=== PATIENT | female | born 1970 | race African-American/Black ===

== ENCOUNTER 2016-10-08 19:53 | Emergency (ER) | payer OTHER ==
[2016-10-08 20:08] VITALS: BP 123/76
[2016-10-08] MEDS ORDERED: Ondansetron ODT TAB* 4 MG PO ONE (20:44)
--- NOTE | 2016-10-08 20:48 | UC ---
Back Pain HPI - HPI Summary HPI Summary: 46 year old patient complaining of acute on chronic back pain. States she slipped and fell today on her stairs, tail bone area of the back hit the stair, sacral spine has increased. Patient saw her PCP earlier today for back pain, was prescribed Tramadol and flexeril. Pt has a recurring monthly script of oxycodone. Patient states she becomes nauseated when taking the tramadol and the flexeril makes her feel too sedated. Patient would like more oxycodone. - History of Current Complaint Chief Complaint: UCBackPain Stated Complaint: BACK INJURY Time Seen by Provider: 10/08/16 20:06 Hx Obtained From: Patient Hx Last Menstrual Period: DOESN'T GET ?: No Onset/Duration: Sudden Onset - Increased chronic back pain after fall Severity Initially: Severe Severity Currently: Severe - Patient exhibits no signs of acute distress Pain Intensity: 10 Pain Scale Used: 0-10 Numeric Back Pain: Radiates To - Right posterior leg into the right popliteal space Character: Unable to Describe Aggravating: Movement, Bending, Walking Alleviating: Nothing - Patient refuses alternative treatment interventions Associated Signs And Symptoms: Positive: Pain with Weight Bearing. Negative: Weakness, Numbness, Tingling, Bladder Incontinence, Bowel Incontinence Related History: Previous Back Injury - Chronic back pain - Risk Factors AAA Risk Factors: Negative TAD Risk Factors: Negative Cauda Equina Risk Factors: Negative Epidural Abscess Risk Factors: Negative - Allergies/Home Medications Allergies/Adverse Reactions: Allergies Allergy/AdvReac Type Severity Reaction Status Date / Time Amoxicillin Allergy Intermediate Itching Verified 08/08/16 08:20 PMH/Surg Hx/FS Hx/Imm Hx Previously Healthy: Yes - Chronic low back pain Endocrine History Of: Denies: Diabetes, Thyroid Disease, Hyperthyroidism, Hypothyroidism, Dyslipidemia Cardiovascular History Of: Denies: Cardiac Disorders, Hypertension, Pacemaker/ICD, Myocardial Infarction , Congestive Heart Failure, Atrial Fibrillation, Deep Vein Thrombosis, Bleeding Disorders Respiratory History Of: Denies: COPD, Asthma, Bronchitis, Pneumonia, Pulmonary Embolism GI/ History Of: Reports: Gall Bladder Disease, Kidney Stones Denies: Gastroesophageal Reflux, Ulcer, Gastrointestinal Bleed, Diverticulitis, Renal Disease, Urosepsis Neurological History Of: Denies: TIA, CVA, Dementia, Seizures, Migraine Psychological History Of: Denies: Anxiety, Depression, Bipolar Disorder, Schizophrenia, Post Traumatic Stress Disorder Cancer History Of: Denies: Lung Cancer, Colorectal Cancer, Breast Cancer, Prostate Cancer, Cervical Cancer Other History Of: Negative For: HIV, Hepatitis B, Hepatitis C, Anticoagulant Therapy - Surgical History Surgical History: Yes Surgery Procedure, Year, and Place: GASTRIC BYPASS-([facility]) : 07/03; [facility]; 2 C SECTIONS, Rt HAND CARPAL TUNNEL Xs2; Lt WRIST GANGLION CYST, ANASTOMOTIC STRICTURE DILATED 08/2012. Pt. states that a needle was left in her after her gastric bypass - Family History Known Family History: Positive: Unknown Negative: Cardiac Disease, Hypertension, Diabetes - Social History Lives: With Family Alcohol Use: Rare Alcohol Amount: 1/2 glass of wine monthly Substance Use Type: None Substance Use Comment - Amount & Last Used: oxycodone Smoking Status (MU): Current Every Day Smoker Type: Cigarettes Amount Used/How Often: 7-8 cigarettes/day Length of Time of Smoking/Using Tobacco: 20+ YEARS Have You Smoked in the Last Year: Yes Household Exposure Type: Cigarettes - Immunization History Most Recent Influenza Vaccination: NOT THIS YEAR Most Recent Tetanus Shot: 2008 Most Recent Pneumonia Vaccination: 05/2013 Vaccination Up to Date: Yes Review of Systems Constitutional: Negative Skin: Negative Eyes: Negative ENT: Negative Respiratory: Negative Cardiovascular: Negative Gastrointestinal: Negative Genitourinary: Negative Motor: Decreased ROM - decreased spinal ROM, Weakness - low back Neurovascular: Negative Musculoskeletal: Decreased ROM, Other: - Chronic low back pain with sciatica Neurological: Negative Psychological: Negative All Other Systems Reviewed And Are Negative: Yes Physical Exam Triage Information Reviewed: Yes Appearance: Well-Appearing, No Pain Distress, Well-Nourished Vital Signs: Initial Vital Signs Temp 97.7 F 10/08/16 20:02 Pulse 83 10/08/16 20:02 Resp 16 10/08/16 20:02 BP 123/76 10/08/16 20:02 Pulse Ox 100 10/08/16 20:02 Vital Signs Reviewed: Yes Eye Exam: Normal Eyes: Positive: Conjunctiva Clear ENT Exam: Normal ENT: Positive: Normal ENT inspection, Hearing grossly normal, Pharynx normal, TMs normal Dental Exam: Normal Neck exam: Normal Neck: Positive: Supple, Nontender, No Lymphadenopathy Respiratory Exam: Normal Respiratory: Positive: Chest non-tender, Lungs clear, Normal breath sounds, No respiratory distress, No accessory muscle use Cardiovascular Exam: Normal Cardiovascular: Positive: RRR, No Murmur, Pulses Normal Abdominal Exam: Normal Abdomen Description: Positive: Nontender, No Organomegaly, Soft Bowel Sounds: Positive: Present Musculoskeletal: Positive: Strength Limited @ - Spine, ROM Limited @ - spine Neurological Exam: Other - DTRs 2+ BLE Neurological: Positive: Alert, Muscle Tone Normal Psychological Exam: Normal Psychological: Positive: Normal Response To Family Skin Exam: Normal - Additional Comments Patient refused treatment modalities such as: Toradol IM injection Taking flexeril before bed to minimize sedation Taking zofran ODT before tramadol to reduce nausea Steroid medications to reduce inflammation Patient stated the only treatment course she was interested for pain management was increasing her existing pain medication. Back Pain Course/Dx - Course Course Of Treatment: Discussed non-opiate pain managment options with patients extensively, including NSAIDS, muscle relaxers, warm packs, ice packs, gentle movements/stretching, and nausea treatment to facilitate taking tramadol. Pt is unwilling to try any non-narcotic options. I explained that no additional narcotics would be prescribed tonight, as she is already on very high doses and further treatment will need to come from her primary care provider. - Differential Dx/Diagnosis Provider Diagnoses: Acute on chronic back pain Discharge - Discharge Plan Condition: Stable Disposition: HOME Prescriptions: Ondansetron ODT TAB* [Zofran Odt TAB*] 4 mg PO Q8H PRN #10 tab.odt PRN Reason: Nausea Patient Education Materials: Chronic Back Pain (ED), Lower Back Exercises (ED) Referrals: Renetta Katz MD [Primary Care Provider] - If Needed Additional Instructions: Begin attending physical therapy as prescribed by your primary care provider. Attend accupuncture as directed by primary care provider. As discussed, there are other treatment paths that are available to treat acute on chronic back pain.
== END 2016-10-08 20:51 | disposition home or self-care (01) ==
LOC: UCEAST 19:53
DX: M54.9 Dorsalgia, unspecified (principal); M54.40 Lumbago with sciatica, unspecified side; Z88.0 Allergy status to penicillin; F17.210 Nicotine dependence, cigarettes, uncomplicated
CPT/HCPCS: 99212; A9270-GY; G0463

== ENCOUNTER 2016-12-08 13:31 | Emergency (ER) | payer OTHER ==
[2016-12-08 15:07] VITALS: BP 119/73
--- NOTE | 2016-12-08 16:53 | UC ---
El Zambrano Erika, scribed for Bia Reis MD on 12/08/16 at 1520 . Back Pain HPI - HPI Summary HPI Summary: Patient is a 46-year-old female presenting to [facility] with a CC of back pain, worse today. Patient has a Hx of chronic back pain, and has oxycodone prescribed by Dr. Collier. Patient was given a 10 day supply of oxycodone 30mg on 11/29/2016, and ran out so came here. Pt admits to taking more than prescribed. Patient has her first appointment at the pain clinic on 12/11/2016. Patient reports that she believed she exacerbated the pain while shoveling the snow. Patient was prescribed a 30 day supply of fentanyl patches on 11/19/2016, but she states she has not been using them because they are not helping and make her itch. Pt also received #90 oxycodone 20mg on 11/19/16. Patient also notes nasal discharge. Has a slight sore throat. She reports she had her flu shot this season. Hx sciatica, arthritis. Patient denies Hx UTI or kidney infections. - History of Current Complaint Chief Complaint: UCBackPain Stated Complaint: BACK PAIN Time Seen by Provider: 12/08/16 15:03 Hx Obtained From: Patient, Medical Records Hx Last Menstrual Period: DOESN'T GET ?: No Onset/Duration: Gradual Onset, Lasting Hours, Worse Since - today Timing: Constant Severity Initially: Moderate Severity Currently: Severe Pain Intensity: 8 Pain Scale Used: 0-10 Numeric Back Pain: Is Discrete @ - lower back Character: Aching, Spasmodic Aggravating: Movement Alleviating: Nothing Associated Signs And Symptoms: Negative: Fever, Numbness, Tingling, Bladder Incontinence, Bowel Incontinence - Risk Factors AAA Risk Factors: Smoking TAD Risk Factors: Smoking Cauda Equina Risk Factors: Negative Epidural Abscess Risk Factors: Fever - no invasive procedures, no skin abscesses - Allergies/Home Medications Allergies/Adverse Reactions: Allergies Allergy/AdvReac Type Severity Reaction Status Date / Time Amoxicillin Allergy Intermediate Itching Verified 12/08/16 14:58 PMH/Surg Hx/FS Hx/Imm Hx - Additional Past Medical History Additional PMH: Chronic back pain GI/ History Of: Reports: Gall Bladder Disease, Kidney Stones Cancer History Of: Denies: Lung Cancer, Colorectal Cancer, Breast Cancer, Prostate Cancer, Cervical Cancer Other History Of: Negative For: HIV, Hepatitis B, Hepatitis C, Anticoagulant Therapy - Surgical History Surgical History: Yes Surgery Procedure, Year, and Place: GASTRIC BYPASS-([facility]) : 07/03; [facility]; 2 C SECTIONS, Rt HAND CARPAL TUNNEL Xs2; Lt WRIST GANGLION CYST, ANASTOMOTIC STRICTURE DILATED 08/2012. Pt. states that a needle was left in her after her gastric bypass - Family History Known Family History: Negative: Cardiac Disease, Hypertension, Diabetes - Social History Lives: With Family Alcohol Use: Rare Substance Use Type: Prescribed Substance Use Comment - Amount & Last Used: oxycodone Smoking Status (MU): Current Every Day Smoker Type: Cigarettes Amount Used/How Often: 7-8 cigarettes/day Length of Time of Smoking/Using Tobacco: 20+ YEARS Have You Smoked in the Last Year: Yes Household Exposure Type: Cigarettes - Immunization History Most Recent Influenza Vaccination: NOT THIS YEAR Most Recent Tetanus Shot: 2008 Most Recent Pneumonia Vaccination: 05/2013 Vaccination Up to Date: Yes Review of Systems Constitutional: Fever Skin: Negative Eyes: Negative ENT: Nasal Discharge Respiratory: Negative Cardiovascular: Negative Gastrointestinal: Negative Genitourinary: Negative Motor: Negative Neurovascular: Negative Musculoskeletal: Arthralgia - back, Myalgia - back Neurological: Negative Psychological: Negative All Other Systems Reviewed And Are Negative: Yes Physical Exam Triage Information Reviewed: Yes Appearance: Well-Appearing, Pain Distress, Obese Vital Signs: Initial Vital Signs Temp 100.4 F 12/08/16 15:00 Pulse 73 12/08/16 15:00 Resp 16 12/08/16 15:00 BP 119/73 12/08/16 15:00 Pulse Ox 100 12/08/16 15:00 Vital Signs Reviewed: Yes Eyes: Positive: Conjunctiva Clear, Other: - PERRL, EOMI ENT: Positive: Pharyngeal erythema, Other: - dry mucus membranes Neck: Positive: Supple, Nontender, No Lymphadenopathy Respiratory: Positive: Lungs clear, Normal breath sounds, No respiratory distress Cardiovascular: Positive: RRR, No Murmur, Pulses Normal, Brisk Capillary Refill Musculoskeletal: Positive: Strength Intact, ROM Intact, Other: - Back no lumbar spinal tenderness, no palpable spasm. Tender sciatic notch Neurological: Positive: Alert, Muscle Tone Normal, Other: - A & O x 3, motor 5/5 , sensation intact, Gait normal, patella reflexes 2+, pt able to walk on heels and toes. Psychological Exam: Normal Skin Exam: Normal Skin: Negative: significant lesion(s) - no abscesses or tracks or open lesions Re-Evaluation - Re-Evaluation First Eval Re-Evaluation Time: 16:10 Comment: Patient declined Toradol shot. She was advised about her test results Back Pain Course/Dx - Course Course Of Treatment: I-STOP reviewed: Patient received 60 oxycodone on 2016. She receives them regularly in 150-180 quantities. Prior to discharge I spoke with pharmacist Radha at [facility] and advised her of pt's istop results. UA negative. Influenza A & B and rapid strep negative. No source for fever identified. - Differential Dx/Diagnosis Differential Diagnosis/HQI/PQRI: Arthritis, Epidural Abscess, Herniated Disc, Strain, Sprain Provider Diagnoses: 1. Acute low back pain superimposed on chronic low back pain and sciatica Discharge - Discharge Plan Condition: Stable Disposition: HOME Prescriptions: oxyCODONE/Acetamin 5/325 MG* [Percocet 5/325 TAB*] 1 tab PO Q8H PRN #6 tab MDD 3 PRN Reason: Pain Patient Education Materials: Fever in Adults (ED), Acute Low Back Pain (ED) Referrals: Scot Collier MD [Primary Care Provider] - 2 Days Additional Instructions: Keep your appointment with Dr. Yadav. Please be advised of the [facility] Chronic Pain Guideline, which you have been given a copy of and Dr. Reis discussed with you. Your urine, strep test and flu test were all negative. RETURN TO URGENT CARE FOR ANY NEW OR WORSENING SYMPTOMS. The documentation as recorded by the El calzada Erika accurately reflects the service I personally performed and the decisions made by me, Bia Reis MD.
== END 2016-12-08 16:48 | disposition home or self-care (01) ==
LOC: UCEAST 13:31
DX: M54.40 Lumbago with sciatica, unspecified side (principal); Z88.0 Allergy status to penicillin; F17.210 Nicotine dependence, cigarettes, uncomplicated; G89.29 Other chronic pain; X50.0XXA Overexertion from strenuous movement or load, initial encounter; Y93.H1 Activity, digging, shoveling and raking; Y92.9 Unspecified place or not applicable
CPT/HCPCS: 81003; 87502; 87651; 99212; G0463

== ENCOUNTER 2016-12-09 18:41 | Emergency (ER) | payer OTHER ==
[2016-12-09 19:00] VITALS: BP 147/98
--- NOTE | 2016-12-09 20:03 | ED ---
Medical Screening - HPI Summary HPI Summary: Patient presents stating that a prescription from Dr. Yadav, with the pain clinic, was sent to [facility] [address] and that the pharmacy refuses to fill the prescription. She said the prescription is now at [facility] and she "needs me to call [facility] and tell them to release the prescription". She has chronic abdominal and back pain, and needs this medication. - History of Current Complaint Chief Complaint: EDPrescriptionNeeded Stated Complaint: MEDICATION REQUEST Onset/Duration: Still Present Severity: severe Associated Signs and Symptoms: Negative PMH/Surg Hx/FS Hx/Imm Hx Endocrine/Hematology History: Denies: Hx Anticoagulant Therapy, Hx Blood Disorders, Hx Diabetes, Hx Systemic Lupus Erythematosus, Hx Sickle Cell Disease, Hx Thyroid Disease Cardiovascular History: Denies: Hx Congestive Heart Failure, Hx Deep Vein Thrombosis, Hx Hypertension , Hx Myocardial Infarction, Hx Pacemaker/ICD Respiratory History: Reports: Hx Seasonal Allergies, Hx Sleep Apnea - CPAP PRN, Other Respiratory Problems/Disorders - TOBACCO USE Denies: Hx Asthma, Hx Chronic Bronchitis, Hx Chronic Obstructive Pulmonary Disease (COPD), Hx Lung Cancer, Hx Pneumonia, Hx Pulmonary Embolism GI History: Reports: Hx Gall Bladder Disease, Hx Gastroesophageal Reflux Disease , Other GI Disorders - GASTRIC BYPASS Denies: Hx Crohn's Disease, Hx Diverticulosis, Hx Gastrointestinal Bleed, Hx Irritable Bowel, Hx Ulcer, Hx Urosepsis History: Reports: Hx Kidney Stones Denies: Hx Kidney Infection, Hx Renal Disease Musculoskeletal History: Reports: Hx Arthritis - in her back, Hx Back Problems, Other Musculoskeletal History - arthritis, sciatic nerve Denies: Hx Bursitis, Hx Congenital Bone Abnormalities, Hx Fibromyalgia, Hx Gout, Hx Orthopedic Injury, Hx Osteoporosis, Hx Scoliosis, Hx Tendonitis Sensory History: Reports: Hx Contacts or Glasses, Hx Vision Problem Denies: Hx Cataracts, Hx Eye Injury, Hx Eye Prosthesis, Hx Glaucoma, Hx Macular Degeneration, Hx Deafness, Hx Hearing Aid, Hx Hearing Problem, Other Sensory Impairments Opthamlomology History: Reports: Hx Contacts or Glasses, Hx Vision Problem Denies: Hx Cataracts, Hx Eye Injury, Hx Eye Prosthesis, Hx Glaucoma, Hx Macular Degeneration, Other Sensory Impairments Neurological History: Denies: Hx Dementia, Hx Headaches, Hx Migraine, Hx Seizures, Hx Transient Ischemic Attacks (TIA) Psychiatric History: Reports: Hx Eating Disorder - ANOREXIA NERVOSA Denies: Hx Anxiety, Hx Depression, Hx Panic Disorder, Hx Schizophrenia, Hx Bipolar Disorder, Hx Substance Abuse - Surgical History Surgery Procedure, Year, and Place: GASTRIC BYPASS-([facility]) : 07/03; [facility]; 2 C SECTIONS, Rt HAND CARPAL TUNNEL Xs2; Lt WRIST GANGLION CYST, ANASTOMOTIC STRICTURE DILATED 08/2012. Pt. states that a needle was left in her after her gastric bypass Hx Anesthesia Reactions: No - Immunization History Date of Tetanus Vaccine: PT STATES UNSURE Date of Influenza Vaccine: None in 2012 Infectious Disease History: No Infectious Disease History: Denies: Hx Clostridium Difficile, Hx Hepatitis, Hx Human Immunodeficiency Virus (HIV), Hx of Known/Suspected MRSA, Hx Shingles, Hx Tuberculosis, Hx Known/ Suspected VRE, Hx Known/Suspected VRSA, History Other Infectious Disease, Traveled Outside the [place] in Last 30 Days - Family History Known Family History: Positive: None Negative: Cardiac Disease, Hypertension, Diabetes - Social History Occupation: Unemployed Lives: With Family Alcohol Use: Rare Alcohol Amount: 1/2 glass of wine monthly Substance Use Type: Reports: Prescribed Substance Use Comment - Amount & Last Used: oxycodone Smoking Status (MU): Current Every Day Smoker Type: Cigarettes Amount Used/How Often: 7-8 cigarettes/day Length of Time of Smoking/Using Tobacco: 20+ YEARS Have You Smoked in the Last Year: Yes Cessation Counseling: Patient Advised to Stop Review of Systems Negative: Fever, Chills Positive: Abdominal Pain - chronic and unchanged All Other Systems Reviewed And Are Negative: Yes Physical Exam - Summary Physical Exam Summary: Patient is wandering the emergency department in no acute distress. Triage Information Reviewed: Yes Vital Signs On Initial Exam: Initial Vitals Temp Pulse Resp BP Pulse Ox 98.2 F 93 16 147/98 100 12/09/16 18:57 12/09/16 18:57 12/09/16 18:57 12/09/16 18:57 12/09/16 18:57 Vital Signs Reviewed: Yes Appearance: Positive: Well-Appearing, No Pain Distress, Well-Nourished Skin: Positive: Warm, Skin Color Reflects Adequate Perfusion, Dry Head/Face: Positive: Normal Head/Face Inspection Eyes: Positive: EOMI, DANNY, Conjunctiva Clear ENT: Positive: Hearing grossly normal Respiratory/Lung Sounds: Positive: Breath Sounds Present Cardiovascular: Positive: RRR Musculoskeletal: Negative: Edema Left, Edema Right Neurological: Positive: Sensory/Motor Intact, Alert, Oriented to Person Place, Time, NV Bundle Intact Distally, Normal Gait Psychiatric: Positive: Affect/Mood Appropriate AVPU Assessment: Alert Diagnostics - Vital Signs Vital Signs Temp Pulse Resp BP Pulse Ox 12/09/16 18:57 98.2 F 93 16 147/98 100 - Laboratory Lab Statement: Any lab studies that have been ordered have been reviewed, and results considered in the medical decision making process. Course/Dx - Course Course Of Treatment: I let the patient know initially that I would not prescribe narcotics to her when she has medication from multiple providers and that the issue she has with her prescription should be takne up with the writing provider. When I spoke with Dr. Yadav, he said he had his first visit with the patient today and obviously did not get the full story regarding her narcotic use, since he now knows she currently has medication for pain from multiple providers, and from multiple pharmacies. He is unwilling to release or recommend any medication for the patient, and will "sort this out tomorrow". I let the patient know about my conversation with Dr. Yadav, and she immediately left the ED without signing her discharge instructions. - Diagnoses Provider Diagnoses: Prescription drug abuse Discharge - Discharge Plan Condition: Stable Disposition: HOME
== END 2016-12-09 19:58 | disposition home or self-care (01) ==
LOC: ED 18:41
DX: Z76.0 Encounter for issue of repeat prescription (principal); F19.10 Other psychoactive substance abuse, uncomplicated; F17.210 Nicotine dependence, cigarettes, uncomplicated
CPT/HCPCS: 99282

== ENCOUNTER 2017-02-03 05:25 | Emergency (ER) | payer OTHER ==
[2017-02-03] MEDS ORDERED: Metoclopramide IV* 5 MG/ML 2 ML VIAL IV ONE ×2 (05:58→11:14)
[2017-02-03] MEDS ORDERED: NS 0.9% 1000 ML* 1,000 ML IV ONE (05:58)
[2017-02-03] MEDS ORDERED: Morphine INJ* 4 MG/ML 1 ML SYRINGE IV ONE ×2 (06:28→07:34)
[2017-02-03 06:33] LABS: ALT 11 U/L (7-52); AST 17 U/L (13-39); Albumin 3.5 g/dL (3.2-5.2); Alkaline Phosphatase 62 U/L (34-104); Anion Gap 5 mmol/L (2-11); BUN/Creatinine Ratio 13.2 (8-20); Blood Urea Nitrogen 9 mg/dL (6-24); C Reactive Protein < 1.00 mg/L (< 5.00); CO2 Carbon Dioxide 24 mmol/L (22-32); Calcium 8.9 mg/dL (8.6-10.3); Chloride 107 mmol/L (101-111); EGFR African American 120.9 (>60); Globulin 3.4 g/dL (2-4); Glucose 98 mg/dL (70-100); Lipase 23 U/L (11.0-82.0); Potassium 3.7 mmol/L (3.5-5.0); Sodium 136 mmol/L (133-145); Total Protein 6.9 g/dL (6.4-8.9)
[2017-02-03 06:34] LABS: Hematocrit 32 % (35-47); Hemoglobin 9.7 g/dl (12.0-16.0); Mean Corpuscular HGB Conc 30 g/dl (31-36); Mean Corpuscular Hemoglobin 19 pg (27-31); Mean Corpuscular Volume 64 fL (80-97); Mean Platelet Volume 9 um3 (7.4-10.4); Red Cell Distribution Width 21 % (10.5-15); White Blood Count 10.2 10^3/ul (3.5-10.8)
[2017-02-03 06:35] LABS: Add Diff/Slide Review? Manual Diff Added; Comments Flag Yes
[2017-02-03] MEDS ORDERED: Ondansetron INJ* 2 MG/ML VIAL IV ONE ×2 (06:40→07:35)
--- NOTE | 2017-02-03 06:49 | ED ---
Isaias Zambrano Billy, scribed for Ian Bowie MD on 02/03/17 at 0622 . Abdominal Pain/Female - HPI Summary HPI Summary: Patient is a 46 year-old female coming to [facility] for evaluation of nausea and vomiting for the last 3 days. She also states that she had an episode of diarrhea yesterday. Patient also complains of headache and subjective fever. She has had similar episodes of nausea and vomiting in the past. She had gastric bypass in 2012. - History of Current Complaint Chief Complaint: EDNauseaVomitDiarrh Stated Complaint: VOMITING/CHEST PAIN Time Seen by Provider: 02/03/17 06:13 Hx Obtained From: Patient Hx Last Menstrual Period: DOESN'T GET Onset/Duration: Gradual Onset, Lasting Days Timing: Constant Severity Initially: Moderate Severity Currently: Moderate Pain Intensity: 8 Pain Scale Used: 0-10 Numeric Aggravating Factor(s): Nothing Alleviating Factor(s): Nothing Associated Signs and Symptoms: Positive: Fever, Nausea, Vomiting, Diarrhea Allergies/Adverse Reactions: Allergies Allergy/AdvReac Type Severity Reaction Status Date / Time Amoxicillin Allergy Intermediate Itching Verified 12/09/16 18:57 PMH/Surg Hx/FS Hx/Imm Hx Endocrine/Hematology History: Denies: Hx Anticoagulant Therapy, Hx Blood Disorders, Hx Diabetes, Hx Systemic Lupus Erythematosus, Hx Sickle Cell Disease, Hx Thyroid Disease Cardiovascular History: Denies: Hx Congestive Heart Failure, Hx Deep Vein Thrombosis, Hx Hypertension , Hx Myocardial Infarction, Hx Pacemaker/ICD Respiratory History: Reports: Hx Seasonal Allergies, Hx Sleep Apnea - CPAP PRN, Other Respiratory Problems/Disorders - TOBACCO USE Denies: Hx Asthma, Hx Chronic Bronchitis, Hx Chronic Obstructive Pulmonary Disease (COPD), Hx Lung Cancer, Hx Pneumonia, Hx Pulmonary Embolism GI History: Reports: Hx Gall Bladder Disease, Hx Gastroesophageal Reflux Disease , Other GI Disorders - GASTRIC BYPASS Denies: Hx Crohn's Disease, Hx Diverticulosis, Hx Gastrointestinal Bleed, Hx Irritable Bowel, Hx Ulcer, Hx Urosepsis History: Reports: Hx Kidney Stones Denies: Hx Kidney Infection, Hx Renal Disease Musculoskeletal History: Reports: Hx Arthritis - in her back, Hx Back Problems, Other Musculoskeletal History - arthritis, sciatic nerve Denies: Hx Bursitis, Hx Congenital Bone Abnormalities, Hx Fibromyalgia, Hx Gout, Hx Orthopedic Injury, Hx Osteoporosis, Hx Scoliosis, Hx Tendonitis Sensory History: Reports: Hx Contacts or Glasses, Hx Vision Problem Denies: Hx Cataracts, Hx Eye Injury, Hx Eye Prosthesis, Hx Glaucoma, Hx Macular Degeneration, Hx Deafness, Hx Hearing Aid, Hx Hearing Problem, Other Sensory Impairments Opthamlomology History: Reports: Hx Contacts or Glasses, Hx Vision Problem Denies: Hx Cataracts, Hx Eye Injury, Hx Eye Prosthesis, Hx Glaucoma, Hx Macular Degeneration, Other Sensory Impairments Neurological History: Denies: Hx Dementia, Hx Headaches, Hx Migraine, Hx Seizures, Hx Transient Ischemic Attacks (TIA) Psychiatric History: Reports: Hx Eating Disorder - ANOREXIA NERVOSA Denies: Hx Anxiety, Hx Depression, Hx Panic Disorder, Hx Schizophrenia, Hx Bipolar Disorder, Hx Substance Abuse - Surgical History Surgery Procedure, Year, and Place: GASTRIC BYPASS-([facility]) : 07/03; [facility]; 2 C SECTIONS, Rt HAND CARPAL TUNNEL Xs2; Lt WRIST GANGLION CYST, ANASTOMOTIC STRICTURE DILATED 08/2012. Pt. states that a needle was left in her after her gastric bypass Hx Anesthesia Reactions: No - Immunization History Date of Tetanus Vaccine: PT STATES UNSURE Date of Influenza Vaccine: None in 2012 Infectious Disease History: No Infectious Disease History: Denies: Hx Clostridium Difficile, Hx Hepatitis, Hx Human Immunodeficiency Virus (HIV), Hx of Known/Suspected MRSA, Hx Shingles, Hx Tuberculosis, Hx Known/ Suspected VRE, Hx Known/Suspected VRSA, History Other Infectious Disease, Traveled Outside the [place] in Last 30 Days - Family History Known Family History: Negative: Cardiac Disease, Hypertension, Diabetes - Social History Alcohol Use: Rare Alcohol Amount: 1/2 glass of wine monthly Substance Use Type: Reports: Prescribed Substance Use Comment - Amount & Last Used: oxycodone Smoking Status (MU): Current Every Day Smoker Type: Cigarettes Amount Used/How Often: 7-8 cigarettes/day Length of Time of Smoking/Using Tobacco: 20+ YEARS Have You Smoked in the Last Year: Yes Review of Systems Positive: Fever Positive: Vomiting, Diarrhea, Nausea Positive: Headache All Other Systems Reviewed And Are Negative: Yes Physical Exam Triage Information Reviewed: Yes Vital Signs On Initial Exam: Initial Vitals Temp Pulse Resp BP Pulse Ox 99.4 F 82 20 158/111 100 02/03/17 05:26 02/03/17 05:26 02/03/17 05:26 02/03/17 05:26 02/03/17 05:26 Vital Signs Reviewed: Yes Appearance: Positive: Pain Distress - mild discomfort, Obese Skin: Positive: Warm Head/Face: Positive: Normal Head/Face Inspection Eyes: Positive: DANNY ENT: Positive: Hearing grossly normal Neck: Positive: Supple Respiratory/Lung Sounds: Positive: Breath Sounds Present Cardiovascular: Positive: RRR Abdomen Description: Positive: Soft, Other: - mild diffuse tenderness. Negative : Distended, Guarding Bowel Sounds: Positive: Present Musculoskeletal: Positive: Strength/ROM Intact Neurological: Positive: Alert, Oriented to Person Place, Time - Dilshad Coma Scale Coma Scale Total: 15 Diagnostics - Vital Signs Vital Signs Temp Pulse Resp BP Pulse Ox 02/03/17 06:00 79 99 02/03/17 05:42 76 100 02/03/17 05:40 154/95 02/03/17 05:33 99.3 F 73 20 154/93 100 02/03/17 05:26 99.4 F 82 20 158/111 100 - Laboratory Lab Results: Lab Results 02/03/17 02/03/17 02/03/17 Range/Units 05:55 05:55 05:55 WBC 10.2 (3.5-10.8) 10^3/ul RBC 5.00 (4.0-5.4) 10^6/ul Hgb 9.7 L (12.0-16.0) g/dl Hct 32 L (35-47) % MCV 64 L (80-97) fL MCH 19 L (27-31) pg MCHC 30 L (31-36) g/dl RDW 21 H (10.5-15) % Plt Count 379 (150-450) 10^3/ul MPV 9 (7.4-10.4) um3 Absolute Neuts (auto) Pending Absolute Lymphs (auto) Pending Absolute Monos (auto) Pending Absolute Eos (auto) Pending Absolute Basos (auto) Pending Absolute Nucleated RBC Pending Neutrophils % Pending Normal RBC Morphology Pending Sodium 136 (133-145) mmol/L Potassium 3.7 (3.5-5.0) mmol/L Chloride 107 (101-111) mmol/L Carbon Dioxide 24 (22-32) mmol/L Anion Gap 5 (2-11) mmol/L BUN 9 (6-24) mg/dL Creatinine 0.68 (0.51-0.95) mg/dL Est GFR ( Amer) 120.9 (>60) Est GFR (Non-Af Amer) 94.0 (>60) BUN/Creatinine Ratio 13.2 (8-20) Glucose 98 (70-100) mg/dL Lactic Acid 0.9 (0.5-2.0) mmol/L Calcium 8.9 (8.6-10.3) mg/dL Total Bilirubin 0.50 (0.2-1.0) mg/dL AST 17 (13-39) U/L ALT 11 (7-52) U/L Alkaline Phosphatase 62 (34-104) U/L C-Reactive Protein < 1.00 (< 5.00) mg/L Total Protein 6.9 (6.4-8.9) g/dL Albumin 3.5 (3.2-5.2) g/dL Globulin 3.4 (2-4) g/dL Albumin/Globulin Ratio 1.0 (1-3) Lipase 23 (11.0-82.0) U/L Result Diagrams: 02/03/17 05:55 02/03/17 05:55 Lab Statement: Any lab studies that have been ordered have been reviewed, and results considered in the medical decision making process. Abdominal Pain Fem Course/Dx - Diagnoses Provider Diagnoses: Cholelithiasis Discharge - Discharge Plan Condition: Stable Disposition: HOME Prescriptions: Ondansetron ODT TAB* [Zofran 4 MG Odt TAB*] 4 mg PO Q8H PRN #10 tab.odt PRN Reason: nausea oxyCODONE/Acetamin 5/325 MG* [Percocet 5/325 TAB*] 1 tab PO Q6H PRN #20 tab MDD 4 PRN Reason: pain Patient Education Materials: Oxycodone/Acetaminophen (By mouth), Narcotic- Analgesic/Acetaminophen (By mouth), Gallstones (ED) Referrals: Scot Collier MD [Primary Care Provider] - Amor Pelaez MD [Medical Doctor] - The documentation as recorded by the Isaias calzada Billy accurately reflects the service I personally performed and the decisions made by nm, Ian Bowie MD.
[2017-02-03 07:05] LABS: Eosinophils % 1 % (0-6); Hypochromasia 1+; Microcytosis 1+; Neutrophil % 57 % (38-83); Target Cells 1+
[2017-02-03] MEDS ORDERED: Iohexol 300* (CONTRAST) 10 ML SDV IV ONE (07:41)
[2017-02-03] MEDS ORDERED: Pantoprazole IV* 40 MG IV ONE (08:07)
--- NOTE | 2017-02-03 08:21 | RAD ---
INDICATION: 46-year-old with nausea and vomiting. Abdominal pain. COMPARISON: None 2013 TECHNIQUE: Axial source images were obtained from the hemidiaphragms to the symphysis pubis following administration of oral and intravenous contrast. 100 mL Omnipaque 300 was utilized. Coronal and sagittal reconstructed images were acquired. Lung bases: The lung bases are clear. Liver: The liver is normal in size. There are no masses. There is mild intra and extra hepatic ductal dilatation. Gallbladder: There are no calcified gallstones. There is no evidence of wall thickening or pericholecystic fluid. The gallbladder is mildly distended. Spleen: The spleen is normal in size. There are no masses. Pancreas: There is no focal pancreatic mass. There is mild ductal dilatation. Adrenal glands: There is no evidence of adrenal mass. Kidneys: The kidneys are normal in size and position. There are prompt nephrograms and there is prompt excretion bilaterally. There are no renal parenchymal masses. There is no evidence of nephrolithiasis. Adenopathy: There is no evidence of adenopathy by size criteria. Fluid collections: There are no free or localized fluid collections. Vessels:There are no significant atherosclerotic changes involving the aorta. There is no focal aneurysm. The iliac vessels are normal in caliber. The IVC appears normal. GI tract: Evaluation of bowel is limited without oral contrast. There is gastric bypass surgery. There is a moderate-sized hiatal hernia. The remainder the upper GI tract is unremarkable. There is moderate stool in the colon. There is no obstructive process the appendix is visualized and appears normal. Pelvic organs: The uterus and adnexa appear normal Bladder: There are no bladder masses. Abdominal and pelvic soft tissues: There is a tiny periumbilical hernia. Osseous structures: There are no acute osseous findings. There is moderate to advanced degenerative disc disease at L4-L5 Other: None IMPRESSION: 1. Distended gallbladder with mild intra- and extrahepatic ductal dilatation in addition to pancreatic ductal dilatation. Similar findings have been reported previously. No CT evidence calcified cholelithiasis. No CT evidence of acute cholecystitis. Suggest gallbladder sonogram. 2. Gastric Inge-en-Y procedure. Small to moderate-sized hiatal hernia. 3. Moderate retained stool. 4. Tiny periumbilical hernia.
[2017-02-03] MEDS ORDERED: HYDROmorphone* 1 MG/ML 1 ML SYR IV SLOW PU ONE ×2 (08:37→11:14)
[2017-02-03 08:56] LABS: Amylase 86 U/L (29-103)
[2017-02-03 10:06] LABS: Urine Bacteria 1+ (Absent); Urine Bilirubin Negative (Negative); Urine Glucose Negative (Negative); Urine Nitrite Negative (Negative)
--- NOTE | 2017-02-03 10:28 | RAD ---
INDICATION: Right upper quadrant pain. COMPARISON: Correlation is made with prior CT studies of the abdomen and pelvis from June 09, 2014 and February 03, 2017. TECHNIQUE: Multiple real-time images of the right upper quadrant were obtained. FINDINGS: The gallbladder is distended. There are multiple gallstones present. No gallbladder wall thickening or pericholecystic fluid is seen. No intrahepatic ductal distention is seen. There is distention of the common bile duct which measures up to 1.1 cm in diameter and unchanged from the prior CT studies. The liver is normal in size without significant focal abnormality. The pancreas is partially obscured by overlying bowel gas. There is mild dilatation of the pancreatic duct which measures up to 0.3 cm in diameter which is unchanged from the prior CT studies. The right kidney is normal in size without evidence for hydronephrosis. IMPRESSION: 1. CHOLELITHIASIS WITHOUT SPECIFIC EVIDENCE FOR ACUTE CHOLECYSTITIS. 2. DILATED COMMON BILE AND PANCREATIC DUCTS UNCHANGED FROM THE PRIOR STUDIES.
[2017-02-03 12:04] VITALS: BP 150/89
--- NOTE | 2017-02-03 13:50 | CONS ---
CONSULTATION REPORT: DATE OF CONSULTATION: 02/03/17. CONSULTED TO: Dr. Amor Pelaez. (DICTATED BY MARIIA STEINER) CONSULTED BY: Richard Campos DO CHIEF COMPLAINT: Nausea and vomiting. HISTORY OF PRESENT ILLNESS: I was asked by Dr. Campos in the emergency room to evaluate Mrs. Read for nausea and vomiting for the last 3 days. The patient notes that she has had intermittent nausea and vomiting for the last 3 days with associated few episodes of loose bowel movements. She complained of headache and not feeling well for which she went to the emergency room for further evaluation. She also reports vague upper epigastric and right upper quadrant abdominal pain for the past few days as well. She had a gastric bypass done at [facility] back in 2012. She was seen in the emergency room 2 years ago with similar complaints and was found to have gallbladder stones. There was no evidence of acute cholecystitis back then and the patient reports no abdominal pain until few days ago. Her pain she described as being dull at 5-6/10, localized to the epigastric and right upper quadrant area with no radiation or any other associated symptoms beside her nausea and vomiting, which has been a chronic issue for her lately. She denies following up with her bariatric surgeon in [place]. She denies any blood in vomit or changes in the color or stools or urine. She denies any history of jaundice or liver disease. She was seen in the emergency room and had a CT scan of the abdomen and pelvis, as well as a right upper quadrant ultrasound. Her CT scan showed distended gallbladder with no evidence of acute cholecystitis and her ultrasound confirmed the presence of cholelithiasis with no evidence of cholecystitis as well. There was also questionable dilated cystic duct and common bile duct, but there was no choledocholithiasis noted. She had also laboratory workup that revealed normal white count of 10,000. Her chemistry showed normal LFTs, lipase, and amylase. We were asked to see the patient for further evaluation regarding her chronic nausea, vomiting, and abdominal pain. PAST MEDICAL HISTORY: As I mentioned above significant for morbid obesity for which she had laparoscopic Inge-en-Y gastric bypass back in 2012. She also has history of gallstones, GERD, and history of kidney stones. PAST SURGICAL HISTORY: Significant for Inge-en-Y gastric bypass in 2012. She also had a left Achilles tendon repair and history of two C-sections in the past. She also had right hand carpal tunnel release twice and left wrist ganglion cyst excision. She reports one episode of dysphagia back in 2011 for which she had an anastomotic stricture dilated. CURRENT MEDICATIONS: Her medications at home include: 1. Prilosec 20 mg p.o. q. daily. 2. Zofran 4 mg tablets q. 8h. as needed for nausea. 3. Vilazodone 20 mg p.o. q. daily. 4. Percocet 5/325 one tablet q. 6h. as needed for back pain. ALLERGIES: She is allergic to AMOXICILLIN. FAMILY HISTORY: Noncontributory. She denies any family history of gallbladder disease. SOCIAL HISTORY: The patient rarely consumes alcohol. She is a current everyday smoker about half a pack per day. She denies illicit drug use. REVIEW OF SYSTEMS: See HPI, otherwise negative. She denies any headache, dizziness, blurred vision or syncope. No chest pain, shortness of breath, cough or hemoptysis. She reports intermittent dull abdominal pain as mentioned above with associated chronic nausea and vomiting but denies any jaundice, changes in bowel habits or bleeding per rectum. No flank pain, dysuria, hematuria or urinary frequency. She denies any fever, chills, night sweats or recent weight loss. PHYSICAL EXAMINATION: General: She is a middle-aged female lying on bed in emergency room, appears comfortable and in no acute distress or discomfort at the time of consultation. Vitals: Temperature 97.9, pulse of 75, blood pressure of 150/89, respirations of 17, and O2 sats of 99% on room air. HEENT: Sclerae anicteric. PERRLA. Oropharynx is pink and moist with no exudate. Neck: Supple. Trachea midline. No cervical adenopathy or thyromegaly. Lungs: Clear to auscultation bilaterally. No rales, wheezes or rhonchi. Heart: Regular rate and rhythm. Normal S1 and S2 without rubs, murmurs, or gallops. Back: With normal curvature. No CVA tenderness. Breasts: Exam deferred at this time. Abdomen: Soft and nondistended. There is mild epigastric and right upper quadrant tenderness on deep palpation without guarding, rigidity or rebound tenderness. Godinez sign was negative. Old scars from prior gastric bypass noted, healed well. No evidence of hernias, masses or organomegaly. Extremities: Without cyanosis, clubbing or edema. Neurologic: Grossly intact. Rectal Exam: Deferred at this time. LABORATORY WORKUP: CBC with white count of 10,000, hemoglobin 9.7, hematocrit of 32, platelets of 379. Her chemistry with sodium of 136, potassium 3.6, chloride 107, CO2 24, BUN of 9, creatinine of 0.7. The remainder of her LFTs, C -reactive protein, amylase, and lipase were all within normal limits. ACCESSORY DIAGNOSTIC DATA: CT scan of the abdomen and pelvis were performed first revealing evidence of distended gallbladder but no evidence of acute cholecystitis. There was also some stones noted within the gallbladder itself but no choledocholithiasis, also there is some mild ductal dilatation noted. A followup ultrasound was performed to confirm the presence of cholelithiasis with no evidence of acute cholecystitis as well. IMPRESSION: A 46-year-old female with prior medical history of morbid obesity, status post laparoscopic Inge-en-Y gastric bypass back in 2012 who has longstanding history of nausea and vomiting and intermittent dull abdominal pain presented to the emergency room today for evaluation with findings consistent with cholelithiasis but no evidence of acute cholecystitis today. PLAN: I went on and discussed with the patient that findings of her exam as well as diagnostic studies. She appears to be comfortable at that point and the plan was for her to be discharged home, and she will follow up with the office to discuss possible cholecystectomy on an elective basis. I discussed with Dr. Pelaez, the case and he agreed to the plans. The patient does not show any symptoms of acute cholecystitis today or any acute abdomen or surgical indications at this point. We will schedule her to follow with one of our bariatric surgeon given her history of Roun-en-Y in the past and she was advised to call the office sooner if she experience any discomfort. I also went on and discussed with her the dietary modification needed. She was advised to avoid any fatty intake at this point, so she does not trigger any gallbladder symptoms. She appears to understand and she will follow up accordingly. [facility] MARIIA AVILA [id number]/[facility] #: [id number] ROD
--- NOTE | 2017-02-03 18:07 | ED ---
Juan Manuel, Don You, scribed for Richard Campos MD on 02/03/17 at 0843 . Progress - Progress Note Progress Note: Sign out pt from Dr. Bowie. Pt c/o nausea and vomiting for the last 3 days. Pt also reports epigastric pain and states that she is unable to eat due to her N/V. Her gall bladder is still intact. - Results/Orders Results/Orders: CT ABD/PEL W IMPRESSION: 1. Distended gallbladder with mild intra- and extrahepatic ductal dilatation in addition to pancreatic ductal dilatation. Similar findings have been reported previously. No CT evidence calcified cholelithiasis. No CT evidence of acute cholecystitis. Suggest gallbladder sonogram. 2. Gastric Inge-en-Y procedure. Small to moderate-sized hiatal hernia. 3. Moderate retained stool. 4. Tiny periumbilical hernia. US ABDOMEN IMPRESSION: 1. CHOLELITHIASIS WITHOUT SPECIFIC EVIDENCE FOR ACUTE CHOLECYSTITIS. 2. DILATED COMMON BILE AND PANCREATIC DUCTS UNCHANGED FROM THE PRIOR STUDIES. Re-Evaluation - Re-Evaluation First Eval Re-Evaluation Time: 08:43 - Pt reports epigastric pain. Course/Dx - Diagnoses Provider Diagnoses: Cholelithiasis - Provider Notifications Discussed Care Of Patient With: Dr. Pelaez (Surgery) @0003. Discussed pt case , will come in to evaluate the pt. Gilma CHIANG (surgerical PA) @[id number]. After evaluation, surgery decided that she can be discharged, with plans to follow up with Dr. Pelaez. The documentation as recorded by the Avelino calzada Benjamin accurately reflects the service I personally performed and the decisions made by , Richard Campos MD.
== END 2017-02-03 12:06 | disposition home or self-care (01) ==
LOC: ED 05:25
DX: K80.20 Calculus of gallbladder without cholecystitis without obstruction (principal); R11.2 Nausea with vomiting, unspecified
CPT/HCPCS: 36415; 74177; 76705; 80053; 81003; 81015; 82150; 83605; 83690; 85025; 86140; 87086; 96374; 96375; 99282; J1170; J2270; J2405; Q9967

== ENCOUNTER 2017-02-08 05:19 | Emergency (ER) | payer OTHER ==
[2017-02-08 05:25] VITALS: BP 132/73
[2017-02-08] MEDS ORDERED: Clindamycin CAP* 150 MG PO ONE (05:45)
[2017-02-08] MEDS ORDERED: Naproxen TAB* 250 MG PO ONE (05:45)
[2017-02-08] MEDS ORDERED: Ketorolac INJ* 60 MG/2 ML VIAL IM ONE (06:20)
--- NOTE | 2017-02-08 20:30 | ED ---
Jessenia Zambrano Alok, scribed for Jas Sheehan MD on 02/08/17 at 0558 . Throat Pain/Nasal Congestion - HPI Summary HPI Summary: 46F presents to the ED with dental pain on the right lower side of her mouth. Pt states her tooth broke while eating a sandwich. Pt denies fever. Pt takes oxycodone for her back. Pt is allergic to Amoxicillin. Pt dentist is [facility]. - History of Current Complaint Chief Complaint: EDDentalPain Time Seen by Provider: 02/08/17 05:42 Hx Obtained From: Patient Onset/Duration: Lasting Hours, Still Present Severity: Moderate Cough: None - Allergies/Home Medications Allergies/Adverse Reactions: Allergies Allergy/AdvReac Type Severity Reaction Status Date / Time Amoxicillin Allergy Intermediate Itching Verified 12/09/16 18:57 PMH/Surg Hx/FS Hx/Imm Hx Endocrine/Hematology History: Denies: Hx Anticoagulant Therapy, Hx Blood Disorders, Hx Diabetes, Hx Systemic Lupus Erythematosus, Hx Sickle Cell Disease, Hx Thyroid Disease Cardiovascular History: Denies: Hx Congestive Heart Failure, Hx Deep Vein Thrombosis, Hx Hypertension , Hx Myocardial Infarction, Hx Pacemaker/ICD Respiratory History: Reports: Hx Seasonal Allergies, Hx Sleep Apnea - CPAP PRN, Other Respiratory Problems/Disorders - TOBACCO USE Denies: Hx Asthma, Hx Chronic Bronchitis, Hx Chronic Obstructive Pulmonary Disease (COPD), Hx Lung Cancer, Hx Pneumonia, Hx Pulmonary Embolism GI History: Reports: Hx Gall Bladder Disease, Hx Gastroesophageal Reflux Disease , Other GI Disorders - GASTRIC BYPASS Denies: Hx Crohn's Disease, Hx Diverticulosis, Hx Gastrointestinal Bleed, Hx Irritable Bowel, Hx Ulcer, Hx Urosepsis History: Reports: Hx Kidney Stones Denies: Hx Kidney Infection, Hx Renal Disease Musculoskeletal History: Reports: Hx Arthritis - in her back, Hx Back Problems, Other Musculoskeletal History - arthritis, sciatic nerve Denies: Hx Bursitis, Hx Congenital Bone Abnormalities, Hx Fibromyalgia, Hx Gout, Hx Orthopedic Injury, Hx Osteoporosis, Hx Scoliosis, Hx Tendonitis Sensory History: Reports: Hx Contacts or Glasses, Hx Vision Problem Denies: Hx Cataracts, Hx Eye Injury, Hx Eye Prosthesis, Hx Glaucoma, Hx Macular Degeneration, Hx Deafness, Hx Hearing Aid, Hx Hearing Problem, Other Sensory Impairments Opthamlomology History: Reports: Hx Contacts or Glasses, Hx Vision Problem Denies: Hx Cataracts, Hx Eye Injury, Hx Eye Prosthesis, Hx Glaucoma, Hx Macular Degeneration, Other Sensory Impairments Neurological History: Denies: Hx Dementia, Hx Headaches, Hx Migraine, Hx Seizures, Hx Transient Ischemic Attacks (TIA) Psychiatric History: Reports: Hx Eating Disorder - ANOREXIA NERVOSA Denies: Hx Anxiety, Hx Depression, Hx Panic Disorder, Hx Schizophrenia, Hx Bipolar Disorder, Hx Substance Abuse - Surgical History Surgery Procedure, Year, and Place: GASTRIC BYPASS-([facility]) : 07/03; [facility]; 2 C SECTIONS, Rt HAND CARPAL TUNNEL Xs2; Lt WRIST GANGLION CYST, ANASTOMOTIC STRICTURE DILATED 08/2012. Pt. states that a needle was left in her after her gastric bypass Hx Anesthesia Reactions: No - Immunization History Date of Tetanus Vaccine: PT STATES UNSURE Date of Influenza Vaccine: None in 2012 Infectious Disease History: No Infectious Disease History: Denies: Hx Clostridium Difficile, Hx Hepatitis, Hx Human Immunodeficiency Virus (HIV), Hx of Known/Suspected MRSA, Hx Shingles, Hx Tuberculosis, Hx Known/ Suspected VRE, Hx Known/Suspected VRSA, History Other Infectious Disease, Traveled Outside the [place] in Last 30 Days - Family History Known Family History: Negative: Cardiac Disease, Hypertension, Diabetes - Social History Occupation: Employed Full-time Alcohol Use: Rare Alcohol Amount: 1/2 glass of wine monthly Substance Use Type: Reports: Prescribed Substance Use Comment - Amount & Last Used: oxycodone Smoking Status (MU): Current Every Day Smoker Type: Cigarettes Amount Used/How Often: 7-8 cigarettes/day Length of Time of Smoking/Using Tobacco: 20+ YEARS Have You Smoked in the Last Year: Yes Review of Systems Negative: Fever, Chills Negative: Erythema Positive: Dental Pain. Negative: Sore Throat Negative: Chest Pain Negative: Shortness Of Breath, Cough Negative: Abdominal Pain, Vomiting, Nausea Negative: dysuria, hematuria Negative: Myalgia, Edema Negative: Rash Neurological: Other - Negative: Dizziness All Other Systems Reviewed And Are Negative: Yes Physical Exam - Summary Physical Exam Summary: Constitutional: Well-developed, Well-nourished, Alert. (-) Distressed Skin: Warm, Dry HENT: Normocephalic; Atraumatic Eyes: Conjunctiva normal Neck: Musculoskeletal ROM normal neck. (-) JVD, (-) Stridor, (-) Tracheal deviation Cardio: Rhythm regular, rate normal, Heart sounds normal; Intact distal pulses; The pedal pulses are 2+ and symmetric. Radial pulses are 2+ and symmetric. (-) Murmur Pulmonary/Chest wall: Effort normal. (-) Respiratory distress, (-) Wheezes, (-) Rales Abd: Soft, (-) Tenderness, (-) Distension, (-) Guarding, (-) Rebound Musculoskeletal: (-) Edema Lymph: (-) Cervical adenopathy Neuro: Alert, Oriented x3 Psych: Mood and affect Normal Triage Information Reviewed: Yes Vital Signs On Initial Exam: Initial Vitals Temp Pulse Resp BP Pulse Ox 97.9 F 93 16 132/73 100 02/08/17 05:20 02/08/17 05:20 02/08/17 05:20 02/08/17 05:20 02/08/17 05:20 Vital Signs Reviewed: Yes - [place] Coma Scale Coma Scale Total: 15 Diagnostics - Vital Signs Vital Signs Temp Pulse Resp BP Pulse Ox 02/08/17 05:35 97.3 F 93 16 132/73 100 02/08/17 05:20 97.9 F 93 16 132/73 100 - Laboratory Lab Statement: Any lab studies that have been ordered have been reviewed, and results considered in the medical decision making process. EENT Course/Dx - Diagnoses Provider Diagnoses: Pain, dental Discharge - Discharge Plan Condition: Stable Disposition: HOME Prescriptions: Clindamycin CAP* [Cleocin 150 MG CAP*] 300 mg PO Q6H #1 bottle Naproxen TAB* [Naprosyn 250 mg TAB*] 500 mg PO Q8H PRN #60 tab PRN Reason: Pain Scale 6-10 Patient Education Materials: Acute Dental Trauma (ED) Referrals: Scot Collier MD [Primary Care Provider] - Additional Instructions: Follow up with [facility] on Friday02/10/17 The documentation as recorded by the Jessenia calzada Alok accurately reflects the service I personally performed and the decisions made by , Jas Sheehan MD.
== END 2017-02-08 06:49 | disposition home or self-care (01) ==
LOC: ED 05:19
DX: K08.89 Other specified disorders of teeth and supporting structures (principal); F17.210 Nicotine dependence, cigarettes, uncomplicated
CPT/HCPCS: 96372; 99281; A9270-GY; J1885

== ENCOUNTER 2017-04-08 05:27 | Emergency (ER) | payer OTHER ==
[2017-04-08 05:33] VITALS: BP 135/78
[2017-04-08] MEDS ORDERED: Clindamycin CAP* 150 MG PO ONE (06:09)
[2017-04-08] MEDS ORDERED: HYDROcodone/ACETAMIN 5-325 MG* 1 TAB PO ONE ×2 (06:09→06:15)
[2017-04-08] MEDS ORDERED: oxyCODONE/Acetamin 5/325 MG* TAB PO ONE (06:21)
[2017-04-08] MEDS ORDERED: oxyCODONE/Acetamin 5/325 MG* TAB ONE (06:24)
--- NOTE | 2017-04-08 06:30 | ED ---
Avelino Zambrano Benjamin, scribed for Naa Nunes MD on 04/08/17 at 0612 . Complex/Multi-Sys Presentation - HPI Summary HPI Summary: 47yo female presents with right upper dental pain. Pt broke her right upper posterior tooth at an unknown date, and just 3 hours ago, became painful. The surrounding gum is also swelling. Pt is a smoker. Denies any significant PMHx or FHX. - History Of Current Complaint Chief Complaint: EDDentalPain Time Seen by Provider: 04/08/17 05:44 Hx Obtained From: Patient Onset/Duration: Sudden Onset, Lasting Hours - 3 hours, Still Present Timing: Constant Severity Currently: Moderate Severity Initially: Moderate Location: Pain At: - right upper molar tooth - Allergies/Home Medications Allergies/Adverse Reactions: Allergies Allergy/AdvReac Type Severity Reaction Status Date / Time Amoxicillin Allergy Intermediate Itching Verified 12/09/16 18:57 PMH/Surg Hx/FS Hx/Imm Hx Endocrine/Hematology History: Denies: Hx Anticoagulant Therapy, Hx Blood Disorders, Hx Diabetes, Hx Systemic Lupus Erythematosus, Hx Sickle Cell Disease, Hx Thyroid Disease Cardiovascular History: Denies: Hx Congestive Heart Failure, Hx Deep Vein Thrombosis, Hx Hypertension , Hx Myocardial Infarction, Hx Pacemaker/ICD Respiratory History: Reports: Hx Seasonal Allergies, Hx Sleep Apnea - CPAP PRN, Other Respiratory Problems/Disorders - TOBACCO USE Denies: Hx Asthma, Hx Chronic Bronchitis, Hx Chronic Obstructive Pulmonary Disease (COPD), Hx Lung Cancer, Hx Pneumonia, Hx Pulmonary Embolism GI History: Reports: Hx Gall Bladder Disease, Hx Gastroesophageal Reflux Disease , Other GI Disorders - GASTRIC BYPASS Denies: Hx Crohn's Disease, Hx Diverticulosis, Hx Gastrointestinal Bleed, Hx Irritable Bowel, Hx Ulcer, Hx Urosepsis History: Reports: Hx Kidney Stones Denies: Hx Kidney Infection, Hx Renal Disease Musculoskeletal History: Reports: Hx Arthritis - in her back, Hx Back Problems, Other Musculoskeletal History - arthritis, sciatic nerve Denies: Hx Bursitis, Hx Congenital Bone Abnormalities, Hx Fibromyalgia, Hx Gout, Hx Orthopedic Injury, Hx Osteoporosis, Hx Scoliosis, Hx Tendonitis Sensory History: Reports: Hx Contacts or Glasses, Hx Vision Problem Denies: Hx Cataracts, Hx Eye Injury, Hx Eye Prosthesis, Hx Glaucoma, Hx Macular Degeneration, Hx Deafness, Hx Hearing Aid, Hx Hearing Problem, Other Sensory Impairments Opthamlomology History: Reports: Hx Contacts or Glasses, Hx Vision Problem Denies: Hx Cataracts, Hx Eye Injury, Hx Eye Prosthesis, Hx Glaucoma, Hx Macular Degeneration, Other Sensory Impairments Neurological History: Denies: Hx Dementia, Hx Headaches, Hx Migraine, Hx Seizures, Hx Transient Ischemic Attacks (TIA) Psychiatric History: Reports: Hx Eating Disorder - ANOREXIA NERVOSA Denies: Hx Anxiety, Hx Depression, Hx Panic Disorder, Hx Schizophrenia, Hx Bipolar Disorder, Hx Substance Abuse - Surgical History Surgery Procedure, Year, and Place: GASTRIC BYPASS-([facility] : 07/03; [facility]; 2 C SECTIONS, Rt HAND CARPAL TUNNEL Xs2; Lt WRIST GANGLION CYST, ANASTOMOTIC STRICTURE DILATED 08/2012. Pt. states that a needle was left in her after her gastric bypass Hx Anesthesia Reactions: No - Immunization History Date of Tetanus Vaccine: PT STATES UNSURE Date of Influenza Vaccine: None in 2012 Infectious Disease History: Denies: Hx Clostridium Difficile, Hx Hepatitis, Hx Human Immunodeficiency Virus (HIV), Hx of Known/Suspected MRSA, Hx Shingles, Hx Tuberculosis, Hx Known/ Suspected VRE, Hx Known/Suspected VRSA, History Other Infectious Disease, Traveled Outside the [place] in Last 30 Days - Family History Known Family History: Positive: None, Unknown Negative: Cardiac Disease, Hypertension, Diabetes - Social History Occupation: Employed Full-time Lives: With Family Alcohol Use: Rare Alcohol Amount: 1/2 glass of wine monthly Substance Use Type: Reports: Prescribed Substance Use Comment - Amount & Last Used: oxycodone Smoking Status (MU): Heavy Every Day Tobacco Smoker Type: Cigarettes Amount Used/How Often: 7-8 cigarettes/day Length of Time of Smoking/Using Tobacco: 20+ YEARS Have You Smoked in the Last Year: Yes Review of Systems Constitutional: Negative Eyes: Negative ENT: Negative Positive: Dental Pain - righ upper molar pain with swelling in the surrounding gum Cardiovascular: Negative Respiratory: Negative Gastrointestinal: Negative Genitourinary: Negative Musculoskeletal: Negative Skin: Negative Neurological: Negative Psychological: Normal All Other Systems Reviewed And Are Negative: Yes Physical Exam Triage Information Reviewed: Yes Vital Signs On Initial Exam: Initial Vitals Temp Pulse Resp BP Pulse Ox 98 F 90 20 135/78 99 04/08/17 05:31 04/08/17 05:31 04/08/17 05:31 04/08/17 05:31 04/08/17 05:31 Vital Signs Reviewed: Yes Appearance: Positive: Well-Appearing, No Pain Distress, Well-Nourished Skin: Positive: Warm, Skin Color Reflects Adequate Perfusion, Dry Head/Face: Positive: Normal Head/Face Inspection Eyes: Positive: EOMI, DANNY ENT: Positive: Hearing grossly normal, Pharynx normal, TMs normal Dental: Positive: Dental Fracture @ - right upper molar, Other - right upper molar tenderness, cracked right upper molar. Swelling in the gums Neck: Positive: Supple, Nontender Respiratory/Lung Sounds: Positive: Clear to Auscultation, Breath Sounds Present. Negative: Rales, Rhonchi Cardiovascular: Positive: RRR. Negative: Murmur Abdomen Description: Positive: Nontender, Soft. Negative: Distended, Guarding Bowel Sounds: Positive: Present Musculoskeletal: Positive: Strength/ROM Intact Neurological: Positive: Sensory/Motor Intact, Alert, Oriented to Person Place, Time, CN Intact II-III Psychiatric: Positive: Affect/Mood Appropriate Diagnostics - Vital Signs Vital Signs Temp Pulse Resp BP Pulse Ox 04/08/17 05:31 98 F 90 20 135/78 99 - Laboratory Lab Statement: Any lab studies that have been ordered have been reviewed, and results considered in the medical decision making process. Complex Multi-Symp Course/Dx Course Of Treatment: 47 yo female with right upper molar tooth pain and decay ( very few other teeth in mouth) pt does not have trismus, or facial swelling or submental swelling. Pt given abx and very short course of opiates, she can not tolerate nsaids as she is s/p aicha en y - Diagnoses Provider Diagnoses: Pain, dental Discharge - Discharge Plan Condition: Stable Disposition: HOME Prescriptions: Clindamycin CAP* [Cleocin 150 MG CAP*] 300 mg PO QID #28 cap HYDROcodone/ACETAMIN 5-325 MG* [Phillips 5-325 TAB*] 1 tab PO Q4H PRN #14 tab MDD 6 PRN Reason: Pain oxyCODONE/Acetamin 5/325 MG* [Percocet 5/325 TAB*] 1 tab PO Q8H PRN #10 tab MDD 3 PRN Reason: Pain Patient Education Materials: Toothache (ED) Referrals: Scot Collier MD [Primary Care Provider] - The documentation as recorded by the Avelino calzada Benjamin accurately reflects the service I personally performed and the decisions made by me, Naa Nunes MD.
== END 2017-04-08 06:30 | disposition home or self-care (01) ==
LOC: ED 05:27
DX: K08.89 Other specified disorders of teeth and supporting structures (principal); F17.210 Nicotine dependence, cigarettes, uncomplicated
CPT/HCPCS: 99282; A9270-GY

== ENCOUNTER → 2017-04-20 06:22 | Emergency (ER) | payer OTHER ==
[2017-04-20 06:26] VITALS: BP 120/60
--- NOTE | 2017-04-20 18:32 | ED ---
I, Isai,Anthony, scribed for Richard Campos MD on 04/20/17 at 0732 . Back Pain - HPI Summary HPI Summary: This 47 y/o male presents to ED for acute on chronic back pain since 2 days ago. Pain radiates down to RLE and is described as burning/tingling. Extending RLE leg makes pain worse. PMHx does include known chronic back pain. Last lumbar CT on 01/17/2017 is noted with DDD as well as OA at L5-S1. She is noted with cane at time of initial evaluation, and pt states that she is cane dependent for ambulation. Pt went to [facility] and was prescribed pain meds. When she ran out of pain meds she decided to visit ED for pain management. Pt is a current smoker. - History of Current Complaint Chief Complaint: EDBackInjuryPain Stated Complaint: BACK PAIN Hx Obtained From: Patient, Medical Records Hx Last Menstrual Period: DOESN'T GET Onset/Duration: Gradual Onset, Still Present Onset/Duration: Started Days Ago - 2 days ago Timing: Constant Back Pain Location: Radiates To - RLE Pain Intensity: 8 Pain Scale Used: 0-10 Numeric Character: Spasmodic, Burning Aggravating Symptom(s): Movement - extending RLE leg Associated Signs And Symptoms: Negative: Weakness - Allergies/Home Medications Allergies/Adverse Reactions: Allergies Allergy/AdvReac Type Severity Reaction Status Date / Time Amoxicillin Allergy Intermediate Itching Verified 04/20/17 06:55 PMH/Surg Hx/FS Hx/Imm Hx Endocrine/Hematology History: Denies: Hx Anticoagulant Therapy, Hx Blood Disorders, Hx Diabetes, Hx Systemic Lupus Erythematosus, Hx Sickle Cell Disease, Hx Thyroid Disease Cardiovascular History: Denies: Hx Congestive Heart Failure, Hx Deep Vein Thrombosis, Hx Hypertension , Hx Myocardial Infarction, Hx Pacemaker/ICD Respiratory History: Reports: Hx Seasonal Allergies, Hx Sleep Apnea - CPAP PRN, Other Respiratory Problems/Disorders - TOBACCO USE Denies: Hx Asthma, Hx Chronic Bronchitis, Hx Chronic Obstructive Pulmonary Disease (COPD), Hx Lung Cancer, Hx Pneumonia, Hx Pulmonary Embolism GI History: Reports: Hx Gall Bladder Disease, Hx Gastroesophageal Reflux Disease , Other GI Disorders - GASTRIC BYPASS Denies: Hx Crohn's Disease, Hx Diverticulosis, Hx Gastrointestinal Bleed, Hx Irritable Bowel, Hx Ulcer, Hx Urosepsis History: Reports: Hx Kidney Stones Denies: Hx Kidney Infection, Hx Renal Disease Musculoskeletal History: Reports: Hx Arthritis - in her back, Hx Back Problems, Other Musculoskeletal History - arthritis, sciatic nerve Denies: Hx Bursitis, Hx Congenital Bone Abnormalities, Hx Fibromyalgia, Hx Gout, Hx Orthopedic Injury, Hx Osteoporosis, Hx Scoliosis, Hx Tendonitis Sensory History: Reports: Hx Contacts or Glasses, Hx Vision Problem Denies: Hx Cataracts, Hx Eye Injury, Hx Eye Prosthesis, Hx Glaucoma, Hx Macular Degeneration, Hx Deafness, Hx Hearing Aid, Hx Hearing Problem, Other Sensory Impairments Opthamlomology History: Reports: Hx Contacts or Glasses, Hx Vision Problem Denies: Hx Cataracts, Hx Eye Injury, Hx Eye Prosthesis, Hx Glaucoma, Hx Macular Degeneration, Other Sensory Impairments Neurological History: Denies: Hx Dementia, Hx Headaches, Hx Migraine, Hx Seizures, Hx Transient Ischemic Attacks (TIA) Psychiatric History: Reports: Hx Eating Disorder - ANOREXIA NERVOSA Denies: Hx Anxiety, Hx Depression, Hx Panic Disorder, Hx Schizophrenia, Hx Bipolar Disorder, Hx Substance Abuse - Surgical History Surgery Procedure, Year, and Place: GASTRIC BYPASS-([facility]) : 07/03; [facility]; 2 C SECTIONS, Rt HAND CARPAL TUNNEL Xs2; Lt WRIST GANGLION CYST, ANASTOMOTIC STRICTURE DILATED 08/2012. Pt. states that a needle was left in her after her gastric bypass Hx Anesthesia Reactions: No - Immunization History Date of Tetanus Vaccine: PT STATES UNSURE Date of Influenza Vaccine: None in 2012 Infectious Disease History: No Infectious Disease History: Denies: Hx Clostridium Difficile, Hx Hepatitis, Hx Human Immunodeficiency Virus (HIV), Hx of Known/Suspected MRSA, Hx Shingles, Hx Tuberculosis, Hx Known/ Suspected VRE, Hx Known/Suspected VRSA, History Other Infectious Disease, Traveled Outside the [place] in Last 30 Days - Family History Known Family History: Negative: Cardiac Disease, Hypertension, Diabetes - Social History Alcohol Use: Rare Alcohol Amount: 1/2 glass of wine monthly Hx Substance Use: Yes Substance Use Type: Reports: Prescribed Substance Use Comment - Amount & Last Used: oxycodone Hx Tobacco Use: Yes Smoking Status (MU): Heavy Every Day Tobacco Smoker Type: Cigarettes Amount Used/How Often: 7-8 cigarettes/day Length of Time of Smoking/Using Tobacco: 20+ YEARS Have You Smoked in the Last Year: Yes Review of Systems Negative: Fever Positive: Other - acute on chronic back pain Negative: Weakness All Other Systems Reviewed And Are Negative: Yes Physical Exam - Summary Physical Exam Summary: The patient is well-nourished in no acute distress and mild to moderate pain. Pt is noted with smell of cigarette. The skin is warm and dry and skin color reflects adequate perfusion. HEENT: The head is normocephalic and atraumatic. The pupils are equal and reactive. The conjunctivae are clear and without drainage. Nares are patent and without drainage. Mouth reveals moist mucous membranes and the throat is without erythema and exudate. Neck is supple with full range of motion and non-tender. Respiratory: Chest is non-tender. Mild wheezing. Cardiovascular: Hear is regular rate and rhythm. There is no murmur or rub auscultated. There is no peripheral edema and pulses are symmetrical and equal. Abdomen: The abdomen is soft and non-tender. There are normal bowel sounds heard in all four quadrants and there is no organomegaly palpated. Musculoskeletal: There is no back pain noted. POSITIVE tenderness to right sciatica region and right buttock. POSITIVE ipsilaterla leg raise at RLE. Negative contralateral leg riase at RLE. There is good capillary refill. Negative motor weakness. DP 2+ and symmetrical. Neurological: Patient is alert and oriented to person, place and time. The patient has symmetrical motor strength in all four extremities. Psychiatric: The patient has an appropriate affect and does not exhibit any anxiety or depression. Triage Information Reviewed: Yes Vital Signs On Initial Exam: Initial Vitals Temp Pulse Resp BP Pulse Ox 97 F 87 16 120/60 100 04/20/17 06:23 04/20/17 06:23 04/20/17 06:23 04/20/17 06:23 04/20/17 06:23 Vital Signs Reviewed: Yes Diagnostics - Vital Signs Vital Signs Temp Pulse Resp BP Pulse Ox 04/20/17 06:53 97 F 87 16 120/60 100 04/20/17 06:23 97 F 87 16 120/60 100 - Laboratory Lab Statement: Any lab studies that have been ordered have been reviewed, and results considered in the medical decision making process. Back Pain Course/Dx - Course Assessment/Plan: This 47 y/o female presents to ED with chief complaint of acute on chronic lower back pain since 2 days ago. PMHx is significant for known chronic back pain with last CT in December 2016 indicating DDD and OA at L5- S1. Pt requests rx for pain management. Pt states that she visited [facility] and received "a couple days of" pain medication. She came in to ED today when pain med ran out. Pt is made aware that limited day supply of pain med can be prescribed at ED level. Pt is sent home with outpatient f/u with her primary care provider, [facility] physician referral, and rx for cyclobenzaprine and percocet. Upon discharge pt requests that percocet strength be increased to [address] Campos specifies to patient that he does not write for such strength. - Diagnoses Provider Diagnoses: Acute exacerbation of chronic low back pain Discharge - Discharge Plan Condition: Stable Disposition: HOME Prescriptions: Cyclobenzaprine TAB* [Flexeril 10 MG TAB*] 10 mg PO TID PRN #30 tab PRN Reason: pain oxyCODONE TAB* [Roxycodone TAB 5 mg*] 5 mg PO Q6H PRN #20 tab MDD 4 PRN Reason: pain Patient Education Materials: Oxycodone/Acetaminophen (By mouth), Cyclobenzaprine (By mouth), Chronic Back Pain (ED) Referrals: Scot Collier MD [Primary Care Provider] - 2 Days [facility] PHYSICIAN REFERRAL [Outside] The documentation as recorded by the Isai calzada Soohyun accurately reflects the service I personally performed and the decisions made by , Richard Campos MD.
== END | disposition home or self-care (01) ==
LOC: ED 06:22
DX: M54.9 Dorsalgia, unspecified (principal); G89.29 Other chronic pain; F17.210 Nicotine dependence, cigarettes, uncomplicated
CPT/HCPCS: 99281

== ENCOUNTER → 2017-06-23 06:01 | Emergency (ER) | payer MEDICAID, OTHER ==
[~2017-06-23 06:01] MED LIST: Acetaminophen TAB* 325 MG ONE; Acetaminophen TAB* 325 MG PO ONE; HYDROmorphone INJ* 1 MG/ML CARPUJECT SYRINGE IV SLOW PU ONE; Iohexol 300* (CONTRAST) 10 ML SDV IV ONE; Morphine INJ* 4 MG/ML 1 ML CARPUJECT IV ONE; NS 0.9% 1000 ML* 1,000 ML IV ONE; Ondansetron INJ* 2 MG/ML VIAL IV ONE; Pantoprazole IV* 40 MG IV ONE
[2017-06-23 07:26] LABS: Hematocrit 35 % (35-47); Mean Corpuscular HGB Conc 31 g/dl (31-36); Mean Corpuscular Hemoglobin 20 pg (27-31); Mean Platelet Volume 8 um3 (7.4-10.4); Red Blood Count 5.48 10^6/ul (4.0-5.4); Red Cell Distribution Width 22 % (10.5-15); White Blood Count 8.6 10^3/ul (3.5-10.8)
[2017-06-23 07:39] LABS: Comments Flag Yes; Mean Corpuscular Volume 65 fL (80-97)
[2017-06-23 07:40] LABS: ALT 10 U/L (7-52); AST 18 U/L (13-39); Albumin 3.4 g/dL (3.2-5.2); Alkaline Phosphatase 45 U/L (34-104); Anion Gap 5 mmol/L (2-11); BUN/Creatinine Ratio 9.3 (8-20); Blood Urea Nitrogen 7 mg/dL (6-24); C Reactive Protein < 1.00 mg/L (< 5.00); CO2 Carbon Dioxide 29 mmol/L (22-32); Calcium 8.7 mg/dL (8.6-10.3); Chloride 102 mmol/L (101-111); EGFR African American 107.5 (>60); EGFR Non-African American 83.6 (>60); Globulin 3.1 g/dL (2-4); Glucose 95 mg/dL (70-100); Lipase 12 U/L (11.0-82.0); Potassium 3.7 mmol/L (3.5-5.0); Sodium 136 mmol/L (133-145); Total Protein 6.5 g/dL (6.4-8.9)
--- NOTE | 2017-06-23 08:20 | RAD ---
HISTORY: Abdominal pain COMPARISONS: August 25, 2015 VIEWS: Frontal views of the abdomen. FINDINGS: BOWEL: There is a nonobstructive bowel gas pattern. There is a large amount of stool within the colon. CALCULI: There are no abnormal calculi. BONES AND SOFT TISSUES: There are no osseous abnormalities. OTHER FINDINGS: The lung bases are clear. There is no subphrenic gas. IMPRESSION: NONOBSTRUCTIVE BOWEL GAS PATTERN. LARGE AMOUNT OF STOOL THROUGHOUT THE COLON
--- NOTE | 2017-06-23 11:23 | RAD ---
INDICATION: Abdominal pain. History of diverticulitis. Cholelithiasis. History of gastric bypass COMPARISON: Abdomen June 23, 2017; CT February 03, 2017; CT June 09, 2014 TECHNIQUE: Axial source images were obtained from the hemidiaphragms to the symphysis pubis following administration of oral and intravenous contrast. 96 mL Omnipaque 300 was utilized. Coronal and sagittal reconstructed images were acquired. Lung bases: The lung bases are clear. Liver: The liver is normal in size. There are no masses. There is chronic intrahepatic and extrahepatic ductal dilatation. Gallbladder: There are no calcified gallstones. The gallbladder is mildly distended, unchanged The patient is known cholelithiasis the basis of prior ultrasonography. Spleen: The spleen is normal in size. There are no masses. Pancreas: There is no focal pancreatic mass. There is mild, chronic pancreatic ductal dilation. Adrenal glands: There is no evidence of adrenal mass. Kidneys: The kidneys are normal in size and position. There are prompt nephrograms and there is prompt excretion bilaterally. There are no renal parenchymal masses. There is no evidence of nephrolithiasis. Adenopathy: There is no evidence of adenopathy by size criteria. Fluid collections: There are no free or localized fluid collections. Vessels:There are no significant atherosclerotic changes involving the aorta. There is no focal aneurysm. The iliac vessels are normal in caliber. The IVC appears normal. GI tract: There are no acute CT bowel findings. There is no obstruction. The stomach and small bowel appear unchanged. There is prior gastric Inge-en-Y procedure. The lower GI tract is remarkable for moderate stool. The cecum, ileocecal valve, and terminal ileum appear normal. Pelvic organs: The uterus and adnexa appear normal Bladder: There are no bladder masses. Abdominal and pelvic soft tissues: The extraperitoneal abdominal and pelvic soft tissues appear normal.. Osseous structures: There are no acute osseous findings. There is degenerative disc disease at the lower 2 lumbar levels. Other: None IMPRESSION: 1. Chronic intrahepatic and extrahepatic ductal dilatation with distended gallbladder, unchanged. There is also mild pancreatic ductal dilatation, unchanged. No calcified cholelithiasis but the patient has known cholelithiasis based on prior ultrasonography. 2. Gastric Inge-en-Y procedure. 3. Moderate retained stool.
[2017-06-23 11:56] VITALS: BP 125/76
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
== END | disposition home or self-care (01) ==
LOC: ED 06:01
DX: K59.00 Constipation, unspecified (principal); R10.9 Unspecified abdominal pain; R19.7 Diarrhea, unspecified; F17.210 Nicotine dependence, cigarettes, uncomplicated
CPT/HCPCS: 36415; 74020; 74177; 80053; 83605; 83690; 84702; 85025; 86140; 96374; 99282; A9270-GY; J1170; J2270; J2405; Q9967

== ENCOUNTER 2017-11-04 07:12 | Emergency (ER) | payer MEDICAID, OTHER ==
[2017-11-04] MEDS ORDERED: PROCHLORPERAZINE INJ 5 MG/ML 2 ML VIAL IM ONE (07:32)
[2017-11-04] MEDS ORDERED: Dexamethasone IV* 4 MG/ML 1 ML (4 MG) IV SLOW PU ONE (08:46)
[2017-11-04] MEDS ORDERED: Orphenadrine Citrate IV* 30 MG/ML 2 ML VIAL IV ONE (08:46)
[2017-11-04] MEDS ORDERED: Ketorolac INJ* 30 MG/ML 1 ML VIAL IV PUSH ONE (08:46)
[2017-11-04] MEDS: HYDROmorphone INJ* 2 MG/ML CARPUJECT SYRINGE IM ONE ×2 (08:50→09:14)
[2017-11-04] MEDS ORDERED: PROCHLORPERAZINE INJ 5 MG/ML 2 ML VIAL IM PRN (08:56)
--- NOTE | 2017-11-04 09:28 | RAD ---
Indication: Fall, back injury. CT of the lumbar spine was obtained in the axial plane. Sagittal and coronal reconstructed images were obtained. The vertebral bodies appear normal in height. Partially sacralized L5 is noted. At L5-S1 there is hypoplastic disc space. No focal protrusion is noted. No fracture is identified. At L4-L5 degenerative disc disease, spondylitic ridge flattens the thecal sac. No central or foraminal stenosis is noted. At L4-L5 no disc protrusion is noted. No central or foraminal stenosis is noted. At L2-L3, L1-L2 and T12-L1 no disc protrusion is identified. IMPRESSION: No fracture of the lumbar spine is noted. Degenerative disc disease at L4-L5 and partially sacralized L5 vertebra is noted.
[2017-11-04] MEDS ORDERED: Ondansetron INJ* 2 MG/ML VIAL IV ONE (09:34)
--- NOTE | 2017-11-04 10:07 | ED ---
Frank Zambrano Angela, scribed for Lacho Nava MD on 11/04/17 at 0808 . Progress - Progress Note Progress Note: This pt was signed out by Dr. Nava, pending disposition, awaiting CT lumbar spine. CT Lumbar Spine, as read by radiologist: IMPRESSION: No fracture of the lumbar spine is noted. Degenerative disc disease at L4-L5 and partially sacralized L5 vertebra is noted. Dr. Nava has reviewed this radiology report. Dr. Martinez signed out this pt to me to follow up the CT of the lumbar spine, if negative the pt can be discharged home. Lumbar spine CT: No fracture of the lumbar spine is noted. Degenerative disc disease at L4-L5 and partially sacralized L5 vertebra is noted. Pt will be discharged to home with follow up from her PCP. Pt is in pain management and will continue with her medications as instructed. She is hemodynamically stable, alert and oriented x3. Pt will be discharged to home, in stable condition, with a diagnosis of low back pain. Condition: Stable Disposition: Home Course/Dx - Diagnoses Provider Diagnoses: Low back pain The documentation as recorded by the Frank calzada Angela accurately reflects the service I personally performed and the decisions made by me, Lacho Nava MD.
[2017-11-04 11:21] VITALS: BP 150/92
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
== END 2017-11-04 11:28 ==
LOC: ED 07:12
DX: M54.5 Low back pain (principal); W00.0XXA Fall on same level due to ice and snow, initial encounter; Y92.9 Unspecified place or not applicable; F17.210 Nicotine dependence, cigarettes, uncomplicated; F50.00 Anorexia nervosa, unspecified; Z88.0 Allergy status to penicillin
CPT/HCPCS: 72131; 96372; 96374; 96375; 99283; J0780; J1100; J1170; J1885; J2360; J2405

== ENCOUNTER 2018-05-21 01:35 | Emergency (ER) | payer OTHER ==
[2018-05-21 01:45] VITALS: BP 122/78
[2018-05-21] MEDS ORDERED: Ketorolac INJ* 60 MG/2 ML VIAL IM ONE (02:11)
[2018-05-21] MEDS ORDERED: Orphenadrine Citrate IV* 30 MG/ML 2 ML VIAL IM ONE (02:11)
--- NOTE | 2018-05-21 06:32 | ED ---
Back Pain - HPI Summary HPI Summary: Patient is a 48 y/o F w/ c/o lower back pain and muscle spasms down legs and lower back at 1500 on 05/20/18. She states that she was walking down staircase when a cat ran across her feet, startling her, and causing her to fall down six stairs. Patient states she landed on her buttocks. 15 y/o daughter assisted her get up. Pain is room is rated 8-9/10, muscle spasms are noted to aggravate pain with nothing alleviating Sx. Patient reports having a sciatic nerve and chronic back pain. She states she is not on any medications currently. She used to take flexeril but reports that she ran out. She also used to take suboxone but states that she has weaned herself off of it and does not believe she needs to take it anymore. Allergy to amoxicillin is noted. Patient states that she does not want to be put on narcotics. - History of Current Complaint Chief Complaint: EDBackInjuryPain Stated Complaint: BACK PAIN/FALL/GENERAL Time Seen by Provider: 05/21/18 02:01 Hx Obtained From: Patient Hx Last Menstrual Period: DOESN'T GET Onset/Duration: Sudden Onset, Lasting Hours - onset 1500 on 05/20/18, Still Present Onset/Duration: Started Hours Ago - onset 1500 05/20/18, Still Present Pain Intensity: 9 Pain Scale Used: 0-10 Numeric - 8-9/10 in room Aggravating Symptom(s): Other - muscle spasms Alleviating Symptom(s): Nothing Associated Signs And Symptoms: Positive: Other - muscle spasms down legs and back - Allergies/Home Medications Allergies/Adverse Reactions: Allergies Allergy/AdvReac Type Severity Reaction Status Date / Time amoxicillin Allergy Itching Verified 05/21/18 06:09 PMH/Surg Hx/FS Hx/Imm Hx Endocrine/Hematology History: Denies: Hx Anticoagulant Therapy, Hx Blood Disorders, Hx Diabetes, Hx Systemic Lupus Erythematosus, Hx Sickle Cell Disease, Hx Thyroid Disease Cardiovascular History: Denies: Hx Congestive Heart Failure, Hx Deep Vein Thrombosis, Hx Hypertension , Hx Myocardial Infarction, Hx Pacemaker/ICD Respiratory History: Reports: Hx Seasonal Allergies, Hx Sleep Apnea - CPAP PRN, Other Respiratory Problems/Disorders - TOBACCO USE Denies: Hx Asthma, Hx Chronic Bronchitis, Hx Chronic Obstructive Pulmonary Disease (COPD), Hx Lung Cancer, Hx Pneumonia, Hx Pulmonary Embolism GI History: Reports: Hx Gall Bladder Disease, Hx Gastroesophageal Reflux Disease , Other GI Disorders - GASTRIC BYPASS, gastric ulcers Denies: Hx Crohn's Disease, Hx Diverticulosis, Hx Gastrointestinal Bleed, Hx Irritable Bowel, Hx Ulcer, Hx Urosepsis History: Reports: Hx Kidney Stones Denies: Hx Kidney Infection, Hx Renal Disease Musculoskeletal History: Reports: Hx Arthritis - in her back, Hx Back Problems, Other Musculoskeletal History - arthritis, sciatic nerve Denies: Hx Bursitis, Hx Congenital Bone Abnormalities, Hx Fibromyalgia, Hx Gout, Hx Orthopedic Injury, Hx Osteoporosis, Hx Scoliosis, Hx Tendonitis Sensory History: Reports: Hx Contacts or Glasses, Hx Vision Problem Denies: Hx Cataracts, Hx Eye Injury, Hx Eye Prosthesis, Hx Glaucoma, Hx Macular Degeneration, Hx Deafness, Hx Hearing Aid, Hx Hearing Problem, Other Sensory Impairments Opthamlomology History: Reports: Hx Contacts or Glasses, Hx Vision Problem Denies: Hx Cataracts, Hx Eye Injury, Hx Eye Prosthesis, Hx Glaucoma, Hx Macular Degeneration, Other Sensory Impairments Neurological History: Reports: Other Neuro Impairments/Disorders - Sciatica Denies: Hx Dementia, Hx Headaches, Hx Migraine, Hx Seizures, Hx Transient Ischemic Attacks (TIA) Psychiatric History: Reports: Hx Eating Disorder - ANOREXIA NERVOSA Denies: Hx Anxiety, Hx Depression, Hx Panic Disorder, Hx Schizophrenia, Hx Bipolar Disorder, Hx Substance Abuse - Surgical History Surgery Procedure, Year, and Place: GASTRIC BYPASS-([facility] : 07/03; [facility]; 2 C SECTIONS, Rt HAND CARPAL TUNNEL Xs2; Lt WRIST GANGLION CYST, ANASTOMOTIC STRICTURE DILATED 08/2012. Pt. states that a needle was left in her after her gastric bypass Hx Anesthesia Reactions: No - Immunization History Date of Tetanus Vaccine: unk Date of Influenza Vaccine: unk Infectious Disease History: No Infectious Disease History: Denies: Hx Clostridium Difficile, Hx Hepatitis, Hx Human Immunodeficiency Virus (HIV), Hx of Known/Suspected MRSA, Hx Shingles, Hx Tuberculosis, Hx Known/ Suspected VRE, Hx Known/Suspected VRSA, History Other Infectious Disease, Traveled Outside the [place] in Last 30 Days - Family History Known Family History: Negative: Cardiac Disease, Hypertension, Diabetes - Social History Alcohol Use: Rare Alcohol Amount: 1/2 glass of wine monthly Hx Substance Use: Yes Substance Use Type: Reports: None Substance Use Comment - Amount & Last Used: oxycodone Hx Tobacco Use: Yes Smoking Status (MU): Heavy Every Day Tobacco Smoker Type: Cigarettes Amount Used/How Often: 7-8 cigarettes/day Length of Time of Smoking/Using Tobacco: 20+ YEARS Have You Smoked in the Last Year: Yes Review of Systems Negative: Fever - temp on vitals is 98.9 F Positive: Other - lower back pain, muscle spasms down back and legs All Other Systems Reviewed And Are Negative: Yes Physical Exam - Summary Physical Exam Summary: Appearance: Well appearing, no pain distress Skin: warm, dry, reflects adequate perfusion Head/face: normal Eyes: EOMI, DANNY ENT: normal Neck: supple, non-tender Respiratory: CTA, breath sounds present Cardiovascular: RRR, pulses symmetrical Abdomen: non-tender, soft Bowel Sounds: present Musculoskeletal: strength/ROM intact; patient jumps with light touch diffusely throughout lower back, no focal deficit. Neuro: normal, sensory motor intact, A&Ox3 Triage Information Reviewed: Yes Vital Signs On Initial Exam: Initial Vitals Temp Pulse Resp BP Pulse Ox 98.9 F 62 16 122/78 98 05/21/18 01:38 05/21/18 01:38 05/21/18 01:38 05/21/18 01:38 05/21/18 01:38 Vital Signs Reviewed: Yes Diagnostics - Vital Signs Vital Signs Temp Pulse Resp BP Pulse Ox 05/21/18 02:30 98.9 F 62 16 122/78 98 05/21/18 01:38 98.9 F 62 16 122/78 98 - Laboratory Lab Statement: Any lab studies that have been ordered have been reviewed, and results considered in the medical decision making process. Re-Evaluation - Re-Evaluation First Eval Re-Evaluation Time: 02:10 Comment: Patient refuses CT. She will be discharged to home as a result. She is agreeable with this plan. Back Pain Course/Dx - Course Course Of Treatment: Patient presents ambulatory with complaint of worsened chronic back pain after allegedly fall. There is no markings on her body to indicate any type of significant fall. She barely allows any type of exam on her entirety of her low back. She jumps with even the lightest touch. She also denies being on Suboxone any longer despite recently obtaining a months supply as per the [facility]. I put in for a CT of the lumbar spine however the patient refused this. She was also ordered intramuscular medications. Following this she wish to leave. She had been explained that she could not be prescribed any further opiate medications. - Diagnoses Differential Diagnosis/HQI/PQRI: Positive: Other - Compression fracture, lumbar contusion, malingering, opiate dependence, drug-seeking behavior Provider Diagnoses: Chronic back pain, Malingering Discharge - Sign-Out/Discharge Documenting (check all that apply): Patient Departure - discharge - Discharge Plan Condition: Improved Disposition: HOME Prescriptions: Cyclobenzaprine TAB* [Flexeril 10 MG TAB*] 10 mg PO TID PRN #30 tab PRN Reason: pain Patient Education Materials: Chronic Back Pain (ED) Referrals: Scot Collier MD [Primary Care Provider] - Additional Instructions: Call your doctor first thing in the morning for follow-up. Ice, range of motion and stretching exercises. Return with difficulty of bowel or bladder, numbness or weakness, new symptoms or other concerns. - Billing Disposition and Condition Condition: IMPROVED Disposition: Home - Attestation Statements Document Initiated by Scribe: Yes Documenting Scribe: Rene Thomas Provider For Whom Domenica is Documenting (Include Credential): Je Rubio MD Scribe Attestation: I, Rene Thomas, scribed for Je Rubio MD on 05/21/18 at 0659. Scribe Documentation Reviewed: Yes Provider Attestation: The documentation as recorded by the Rene calzada accurately reflects the service I personally performed and the decisions made by me, Je Rubio MD
== END 2018-05-21 02:30 | disposition home or self-care (01) ==
LOC: ED 01:35
DX: M54.5 Low back pain (principal); G89.29 Other chronic pain; Z76.5 Malingerer [conscious simulation]
CPT/HCPCS: 96372; 99282; J1885; J2360

== ENCOUNTER 2018-05-21 06:07 | Emergency (ER) | payer OTHER ==
[2018-05-21 06:12] VITALS: BP 123/88
[2018-05-21] MEDS ORDERED: Orphenadrine Citrate IV* 30 MG/ML 2 ML VIAL IV ONE (06:37)
[2018-05-21] MEDS ORDERED: Cyclobenzaprine TAB* 10 MG PO ONE (06:38)
[2018-05-21] MEDS ORDERED: Orphenadrine Citrate IV* 30 MG/ML 2 ML VIAL IM ONE (07:31)
[2018-05-21 07:46] LABS: Hematocrit 32 % (35-47); Hemoglobin 9.6 g/dl (12.0-16.0); Mean Corpuscular HGB Conc 30 g/dl (31-36); Mean Corpuscular Hemoglobin 19 pg (27-31); Mean Corpuscular Volume 61 fL (80-97); Mean Platelet Volume 8.7 um3 (7.4-10.4); Platelet Count 396 10^3/ul (150-450); Red Blood Count 5.15 10^6/ul (4.00-5.40); Red Cell Distribution Width 26 % (10.5-15); White Blood Count 8.1 10^3/ul (3.5-10.8)
--- NOTE | 2018-05-21 07:48 | ED ---
Back Pain - HPI Summary HPI Summary: Patient presents with low back pain and bilateral lower extremity spasm intermittently since falling at 3:30 AM on 05/20. She reports she was walking down the stairs at 3:30 in the morning when her cat ran past her and she tripped and fell down the stairs. She landed on her butt, striking her buttock and her lower back. Was seen here earlier today by Dr. Rubio who provided her with toradol and norflex IM. She was also offered a CT image however declined. She is a bariatric status pt and has not been eating or drinking well recently. She last urinated this morning - denies hesitation, incontinence or retention. Also denies numbness, tingling, weakness, bowel changes or saddle paresthesia. She has a h/o lumbar arthritis. Was taking oxycodone in the past then transitioned to suboxone but reports she weaned herself off ([facility] indicates she filled this rx recently). She reports she was able to wean herself from suboxone w/o difficulty. [place] that regimen last night helped her pain but didn' t last long - she also admits she was unable to fill her flexeril as pharmacy was closed. She is mostly concerned about her LBP and LE spasms. Requesting something for pain now. - History of Current Complaint Chief Complaint: EDBackInjuryPain Stated Complaint: BACK PAIN Time Seen by Provider: 05/21/18 06:20 Hx Obtained From: Patient Hx Last Menstrual Period: DOESN'T GET Pain Intensity: 8 - Allergies/Home Medications Allergies/Adverse Reactions: Allergies Allergy/AdvReac Type Severity Reaction Status Date / Time amoxicillin Allergy Itching Verified 05/21/18 06:09 PMH/Surg Hx/FS Hx/Imm Hx Previously Healthy: Yes Endocrine/Hematology History: Denies: Hx Anticoagulant Therapy, Hx Blood Disorders, Hx Diabetes, Hx Systemic Lupus Erythematosus, Hx Sickle Cell Disease, Hx Thyroid Disease Cardiovascular History: Denies: Hx Congestive Heart Failure, Hx Deep Vein Thrombosis, Hx Hypertension , Hx Myocardial Infarction, Hx Pacemaker/ICD Respiratory History: Reports: Hx Seasonal Allergies, Hx Sleep Apnea - CPAP PRN, Other Respiratory Problems/Disorders - TOBACCO USE Denies: Hx Asthma, Hx Chronic Bronchitis, Hx Chronic Obstructive Pulmonary Disease (COPD), Hx Lung Cancer, Hx Pneumonia, Hx Pulmonary Embolism GI History: Reports: Hx Gall Bladder Disease, Hx Gastroesophageal Reflux Disease , Other GI Disorders - GASTRIC BYPASS, gastric ulcers Denies: Hx Crohn's Disease, Hx Diverticulosis, Hx Gastrointestinal Bleed, Hx Irritable Bowel, Hx Ulcer, Hx Urosepsis History: Reports: Hx Kidney Stones Denies: Hx Kidney Infection, Hx Renal Disease Musculoskeletal History: Reports: Hx Arthritis - in her back, Hx Back Problems, Other Musculoskeletal History - arthritis, sciatic nerve Denies: Hx Bursitis, Hx Congenital Bone Abnormalities, Hx Fibromyalgia, Hx Gout, Hx Orthopedic Injury, Hx Osteoporosis, Hx Scoliosis, Hx Tendonitis Sensory History: Reports: Hx Contacts or Glasses, Hx Vision Problem Denies: Hx Cataracts, Hx Eye Injury, Hx Eye Prosthesis, Hx Glaucoma, Hx Macular Degeneration, Hx Deafness, Hx Hearing Aid, Hx Hearing Problem, Other Sensory Impairments Opthamlomology History: Reports: Hx Contacts or Glasses, Hx Vision Problem Denies: Hx Cataracts, Hx Eye Injury, Hx Eye Prosthesis, Hx Glaucoma, Hx Macular Degeneration, Other Sensory Impairments Neurological History: Reports: Other Neuro Impairments/Disorders - Sciatica Denies: Hx Dementia, Hx Headaches, Hx Migraine, Hx Seizures, Hx Transient Ischemic Attacks (TIA) Psychiatric History: Reports: Hx Eating Disorder - ANOREXIA NERVOSA Denies: Hx Anxiety, Hx Depression, Hx Panic Disorder, Hx Schizophrenia, Hx Bipolar Disorder, Hx Substance Abuse - Surgical History Surgery Procedure, Year, and Place: GASTRIC [facility]PASS-([facility] : 07/03; [facility]; 2 C SECTIONS, Rt HAND CARPAL TUNNEL Xs2; Lt WRIST GANGLION CYST, ANASTOMOTIC STRICTURE DILATED 08/2012. Pt. states that a needle was left in her after her gastric bypass Hx Anesthesia Reactions: No - Immunization History Date of Tetanus Vaccine: unk Date of Influenza Vaccine: fall 2016 Infectious Disease History: No Infectious Disease History: Denies: Hx Clostridium Difficile, Hx Hepatitis, Hx Human Immunodeficiency Virus (HIV), Hx of Known/Suspected MRSA, Hx Shingles, Hx Tuberculosis, Hx Known/ Suspected VRE, Hx Known/Suspected VRSA, History Other Infectious Disease, Traveled Outside the [place] in Last 30 Days - Family History Known Family History: Positive: Unknown Negative: Cardiac Disease, Hypertension, Diabetes - Social History Alcohol Use: Rare Alcohol Amount: 1/2 glass of wine monthly Hx Substance Use: Yes Substance Use Comment - Amount & Last Used: oxycodone Hx Tobacco Use: Yes Smoking Status (MU): Current Every Day Smoker Type: Cigarettes Amount Used/How Often: 7-8 cigarettes/day Length of Time of Smoking/Using Tobacco: 20+ YEARS Have You Smoked in the Last Year: Yes Review of Systems Constitutional: Negative Negative: Fever, Chills, Fatigue Eyes: Negative - denies striking her head w/ fall and no neuro deficits ENT: Negative Cardiovascular: Negative Respiratory: Negative Gastrointestinal: Negative Genitourinary: Negative Positive: see HPI Positive: Arthralgia, Myalgia. Negative: Decreased ROM, Edema Skin: Negative Neurological: Other - leg spasms Negative: Headache, Weakness, Paresthesia, Numbness, Syncope, Slurred Speech Positive: Anxious All Other Systems Reviewed And Are Negative: Yes Physical Exam Triage Information Reviewed: Yes Vital Signs On Initial Exam: Initial Vitals Temp Pulse Resp BP Pulse Ox 98 F 85 16 123/88 100 05/21/18 06:09 05/21/18 06:09 05/21/18 06:09 05/21/18 06:09 05/21/18 06:09 Vital Signs Reviewed: Yes Appearance: Positive: Well-Appearing, Pain Distress - mild - lying on stretcher with light out, covered with a blanket in position - reports photophobia but no CORTEZ, Thin Skin: Positive: Warm, Skin Color Reflects Adequate Perfusion, Dry Head/Face: Positive: Normal Head/Face Inspection Eyes: Positive: Normal, EOMI, Conjunctiva Clear ENT: Positive: Hearing grossly normal, Pharynx normal - mucosa moist Neck: Positive: Supple Respiratory/Lung Sounds: Positive: Clear to Auscultation, Breath Sounds Present. Negative: Rales, Rhonchi, Stridor, Tracheal Deviation, Wheezes, Unable to speak in full sentences, Fatigue Cardiovascular: Positive: Normal, RRR, S1, S2. Negative: Leg Edema Left, Leg Edema Right Abdomen Description: Positive: Nontender, Soft Bowel Sounds: Positive: Present Musculoskeletal: Positive: Strength/ROM Intact - LE's 5/5 strength and equal B/L , Pain @ - lumbar spine and SI's are TTP Neurological: Positive: Normal, Sensory/Motor Intact - pt does kick her legs out intermittently in pain, Alert, Oriented to Person Place, Time, CN Intact II- III, Reflexes Intact Psychiatric: Positive: Anxious - but consolable Diagnostics - Vital Signs Vital Signs Temp Pulse Resp BP Pulse Ox 05/21/18 06:09 98 F 85 16 123/88 100 - Laboratory Result Diagrams: 05/21/18 07:33 05/21/18 07:33 Lab Statement: Any lab studies that have been ordered have been reviewed, and results considered in the medical decision making process. Back Pain Course/Dx - Course Course Of Treatment: Pt presents within 24 hours for same c/o LBP w/ leg spasms since fall. Apparently she declined CT at first visit but is open to an XR at this visit. She was rx'd flexeril PO but then told the nurse she was nauseous and would puke this up. When asked about her nausea, she said it developed with her movement during XR - pain triggered nausea. Offered norflex injection instead which she agreed to but requested "something with a D" and before I left the room she states "oh, it's dilaudid". We discussed that we will start with a muscle relaxer for her spasms as this helped last night and she missed her dose so should help again. Will refrain from NSAID's as she is a bariatric status and h/o GI ulcers. Since she hasn't been eating well, we also discussed checking labs for deficiencies that could be causing LE spasms - she agrees w/ testing. Unfortunately before labs returned, she left after receiving her norflex IM (per nursing). WIll call w/ lab results as she does appear to have chronic anemia but worse today. XR reports reveal arthritis but no acute fx, dislocation, etc. Pt was ambulatory on way in and when she left. Diff dx: acute on chronic LBP, possible seeking or withdrawal however she did not want to discuss those possibilities so could not offer assistance there. She reports she 's been seen by [facility] in the past and so she is aware of this resource. - Diagnoses Provider Diagnoses: Fall on stairs, Low back pain, Leg muscle spasm, Anemia Discharge - Sign-Out/Discharge Documenting (check all that apply): Patient Departure - Discharge Plan Disposition: ELOPEMENT - Billing Disposition and Condition Disposition: Elopement
[2018-05-21 07:59] LABS: EGFR Non-African American 91.6 (>60)
--- NOTE | 2018-05-21 07:59 | RAD ---
INDICATION: Bilateral hip pain after a fall COMPARISON: CT abdomen pelvis dated June 23, 2017 TECHNIQUE: 2 views of each hip and an AP view of the pelvis were obtained. FINDINGS: The visualized bones of the hips are well-corticated and properly aligned. Mild degenerative changes of the bilateral hips include sclerotic change of the acetabular roofs and very mild marginal osteophyte formation. There is no radiographic evidence of acute fracture or dislocation. IMPRESSION: Mild degenerative changes of the bilateral hips without radiographically apparent fracture or dislocation. If the patient's symptoms persist follow-up imaging is recommended.
--- NOTE | 2018-05-21 08:00 | RAD ---
INDICATION: Low back pain after a fall down the stairs COMPARISON: CT abdomen pelvis June 23, 2017 TECHNIQUE: 3 views of the lumbar spine were obtained. FINDINGS: The vertebra are in normal alignment. No fracture is seen. Mild degenerative changes include loss of intervertebral disc height at the lower thoracic spine and L5/S1. IMPRESSION: No evidence of fracture or subluxation.
== END 2018-05-21 08:04 | disposition home or self-care (01) ==
LOC: ED 06:07
DX: M54.5 Low back pain (principal); M62.838 Other muscle spasm; D64.9 Anemia, unspecified; W10.9XXA Fall (on) (from) unspecified stairs and steps, initial encounter; Y92.9 Unspecified place or not applicable; Z88.0 Allergy status to penicillin; F17.210 Nicotine dependence, cigarettes, uncomplicated
CPT/HCPCS: 36415; 72100; 73523; 80053; 82607; 83540; 83550; 83735; 84443; 85027; 96372; 96374; 99282; A9270-GY; J2360

== ENCOUNTER → 2018-05-28 12:35 | Emergency (ER) | payer OTHER ==
[~2018-05-28 12:35] MED LIST changes: +ACETYLCYSTEINE IVPB ONE; -Acetaminophen TAB* 325 MG ONE; -Acetaminophen TAB* 325 MG PO ONE; +D5W IV ONE; +D5W IVPB ONE; -HYDROmorphone INJ* 1 MG/ML CARPUJECT SYRINGE IV SLOW PU ONE; -Iohexol 300* (CONTRAST) 10 ML SDV IV ONE; -Morphine INJ* 4 MG/ML 1 ML CARPUJECT IV ONE; -NS 0.9% 1000 ML* 1,000 ML IV ONE; +NS 0.9% 1000 ML* 2,000 ML IV ONE; +NS 0.9% 250 ML* 250 ML ONE; -Ondansetron INJ* 2 MG/ML VIAL IV ONE; -Pantoprazole IV* 40 MG IV ONE; +Piperacillin/Tazobac ADVAN(*) 3.375 GM in NS 0.9% 100 ML* 100 ML IVPB ONE; +SODIUM BICARBONATE IV ONE; +Sodium Bicarbonate 8.4% IV* 150 MEQ in D5W 1000 ML BAG* 1,000 ML IV ONE; +Sodium Bicarbonate 8.4%* 50 ML SYRINGE IV ONE; +Vancomycin(*) 1,000 MG in NS 0.9% 250 ML* 250 ML IVPB ONE; +Vancomycin(*) 1,000 MG in NS 0.9% 250 ML* 250 ML IVPB SCH; +Zosyn per Pharmacy* NOTE FOLLOW UP SCH
--- NOTE | 2018-05-28 12:54 | ED ---
Altered Mental Status - HPI Summary HPI Summary: This patient is a 48 year old F BIBA unresponsive. EMS reports pt was found in her bed unresponsive and given 4 of Narcan which provided no relief. Pt had urinary incontinence on the stretcher. Pts eyes are open but she is not responding. Pts family states she over slept and was normal 15 minutes before they called EMS and state her apartment was very hot. LEVEL 5 CAVEAT: Exam limited due to the patient being unresponsive. - History Of Current Complaint Chief Complaint: EDRespiratoryDistress Stated Complaint: UNRESPONSIVE Hx Obtained From: EMS Hx Last Menstrual Period: DOESN'T GET Onset/Duration: Unknown, Still Present Timing: Constant - Allergies/Home Medications Allergies/Adverse Reactions: Allergies Allergy/AdvReac Type Severity Reaction Status Date / Time amoxicillin Allergy Itching Verified 05/21/18 06:09 Home Medications: Home Medications Buprenorphine HCl/Naloxone HCl [Buprenorphin-Naloxon 8-2 mg Sl] 3 tab SL DAILY 05/28/18 [History Confirmed 05/28/18] PMH/Surg Hx/FS Hx/Imm Hx Endocrine/Hematology History: Denies: Hx Anticoagulant Therapy, Hx Blood Disorders, Hx Diabetes, Hx Systemic Lupus Erythematosus, Hx Sickle Cell Disease, Hx Thyroid Disease Cardiovascular History: Denies: Hx Congestive Heart Failure, Hx Deep Vein Thrombosis, Hx Hypertension , Hx Myocardial Infarction, Hx Pacemaker/ICD Respiratory History: Reports: Hx Seasonal Allergies, Hx Sleep Apnea - CPAP PRN, Other Respiratory Problems/Disorders - TOBACCO USE Denies: Hx Asthma, Hx Chronic Bronchitis, Hx Chronic Obstructive Pulmonary Disease (COPD), Hx Lung Cancer, Hx Pneumonia, Hx Pulmonary Embolism GI History: Reports: Hx Gall Bladder Disease, Hx Gastroesophageal Reflux Disease , Other GI Disorders - GASTRIC BYPASS, gastric ulcers Denies: Hx Crohn's Disease, Hx Diverticulosis, Hx Gastrointestinal Bleed, Hx Irritable Bowel, Hx Ulcer, Hx Urosepsis History: Reports: Hx Kidney Stones Denies: Hx Kidney Infection, Hx Renal Disease Musculoskeletal History: Reports: Hx Arthritis - in her back, Hx Back Problems, Other Musculoskeletal History - arthritis, sciatic nerve Denies: Hx Bursitis, Hx Congenital Bone Abnormalities, Hx Fibromyalgia, Hx Gout, Hx Orthopedic Injury, Hx Osteoporosis, Hx Scoliosis, Hx Tendonitis Sensory History: Reports: Hx Contacts or Glasses, Hx Vision Problem Denies: Hx Cataracts, Hx Eye Injury, Hx Eye Prosthesis, Hx Glaucoma, Hx Macular Degeneration, Hx Deafness, Hx Hearing Aid, Hx Hearing Problem, Other Sensory Impairments Opthamlomology History: Reports: Hx Contacts or Glasses, Hx Vision Problem Denies: Hx Cataracts, Hx Eye Injury, Hx Eye Prosthesis, Hx Glaucoma, Hx Macular Degeneration, Other Sensory Impairments Neurological History: Reports: Other Neuro Impairments/Disorders - Sciatica Denies: Hx Dementia, Hx Headaches, Hx Migraine, Hx Seizures, Hx Transient Ischemic Attacks (TIA) Psychiatric History: Reports: Hx Eating Disorder - ANOREXIA NERVOSA Denies: Hx Anxiety, Hx Depression, Hx Panic Disorder, Hx Schizophrenia, Hx Bipolar Disorder, Hx Substance Abuse - Surgical History Surgery Procedure, Year, and Place: GASTRIC BYPASS-([facility] : 07/03; LT [facility]; 2 C SECTIONS, Rt HAND CARPAL TUNNEL Xs2; Lt WRIST GANGLION CYST, ANASTOMOTIC STRICTURE DILATED 08/2012. Pt. states that a needle was left in her after her gastric bypass Hx Anesthesia Reactions: No - Immunization History Date of Tetanus Vaccine: unk Date of Influenza Vaccine: fall 2016 Infectious Disease History: Unable to Obtain/Confirm Infectious Disease History: Denies: Hx Clostridium Difficile, Hx Hepatitis, Hx Human Immunodeficiency Virus (HIV), Hx of Known/Suspected MRSA, Hx Shingles, Hx Tuberculosis, Hx Known/ Suspected VRE, Hx Known/Suspected VRSA, History Other Infectious Disease, Traveled Outside the [place] in Last 30 Days - Family History Known Family History: Negative: Cardiac Disease, Hypertension, Diabetes - Social History Lives: With Family Alcohol Use: Rare Alcohol Amount: 1/2 glass of wine monthly Hx Substance Use: Yes Substance Use Type: Reports: None Substance Use Comment - Amount & Last Used: oxycodone Hx Tobacco Use: Yes Smoking Status (MU): Current Every Day Smoker Type: Cigarettes Amount Used/How Often: 7-8 cigarettes/day Length of Time of Smoking/Using Tobacco: 20+ YEARS Have You Smoked in the Last Year: Yes Review of Systems - ROS Summary Review of Systems Summary: LEVEL 5 CAVEAT: Exam limited due to the patient being unresponsive Neurological: Other - AMS All Other Systems Reviewed And Are Negative: No Physical Exam - Summary Physical Exam Summary: Appearance: Well-appearing, Well-nourished, no signs of trauma. Non responsive. Skin: Warm, dry, no obvious rash Eyes: jaundice ENT: mucous membranes moist, pharynx appears normal Neck: Supple, Respiratory: intubated but is breathing on her own above the ventilator Cardiovascular: Normal S1, S2. No murmurs. Normal distal pulses in tibial and radial bilaterally. Abdomen: Soft, normal active bowel sounds present Musculoskeletal: pt has all four limbs Triage Information Reviewed: Yes Vital Signs On Initial Exam: Initial Vitals Temp Pulse Resp BP Pulse Ox 98.8 F 140 36 50/36 100 05/28/18 12:47 05/28/18 12:47 05/28/18 12:47 05/28/18 12:47 05/28/18 12:47 Vital Signs Reviewed: Yes Completion Of Physical Exam Limited Due To: Level 5 - LEVEL 5 CAVEAT: Exam limited due to the patient being unresponsive Diagnostics - Vital Signs Vital Signs Temp Pulse Resp BP Pulse Ox 05/28/18 12:47 98.8 F 140 36 50/36 100 - Laboratory Result Diagrams: 05/28/18 12:45 05/28/18 12:45 Lab Statement: Any lab studies that have been ordered have been reviewed, and results considered in the medical decision making process. - Radiology CXR Radiology Interpretation Completed By: Radiologist - LINES AND TUBES ABOVE. NO ACTIVE CARDIOPULMONARY DISEASE. ED physician has reviewed this radiology report. - CT CT Brain CT Interpretation Completed By: Radiologist - LIMITED STUDY. WITHIN THE LIMITATIONS OF THE STUDY, THERE IS NO ACUTE INTRACRANIAL PATHOLOGY. ED physician has reviewed this radiology report. - EKG 12:40 Cardiac Rate: Tachycardia EKG Rhythm: Sinus Tachycardia - sinus tachycardia at 140 BPM, P waves, QRS complex, and T waves prominent, no ischemic changes. Altered Mental Statu Course/Dx - Course Course Of Treatment: This is a 48-year-old woman with no significant past medical history that we know of presents to the ED unresponsive after being found by family lying on the floor. She was intubated in the field and an IO was started. IV fluids via I/O needle were started as she was quite hypotensive and tachycardic. Her blood pressure has stabilized. Her laboratory studies are coming back showing severe metabolic derangements including acute renal failure, severe metabolic acidosis, and abnormal liver function tests. The etiology of all this is unclear at this time. She was evaluated by our outreach consultant but unfortunately we do not have dialysis capability here at [facility] today, so had to make arrangements to have the patient transferred to [facility] as she may need emergent dialysis. Further supportive care in the form of a bicarbonate drip and N-acetylcysteine has been ordered by the outreach consultant. - Diagnoses Provider Diagnoses: Acute renal failure, Hepatic failure, Altered mental status, Hypernatremia, Hyperkalemia - Provider Notifications Reason For Transfer: Specialty or service not available at [facility]. - Critical Care Time Critical Care Time: 30-74 min - Critically ill, intubated female with severe metabolic derangements requiring IV fluids and close reassessment. Discharge - Sign-Out/Discharge Documenting (check all that apply): Patient Departure - Discharge Plan Condition: Critical Disposition: TRANS HIGHER LVL OF CARE FAC Referrals: Scot Collier MD [Primary Care Provider] - - Billing Disposition and Condition Condition: CRITICAL Disposition: Trans Higher Lvl of Care Fac - Attestation Statements Document Initiated by Domenica: Yes Documenting Scribe: Malik Arredondo Provider For Whom Scribe is Documenting (Include Credential): Rommel Rachel Scribe Attestation: IMalik, agibed for Rommel Rachel on 05/28/18 at 1428. Scribe Documentation Reviewed: Yes Provider Attestation: The documentation as recorded by the Malik calzada accurately reflects the service I personally performed and the decisions made by me, Rommel Rachel Consult Consult: 1320 We discussed patient care with Dr Gorman and they recommended contacting Dr. Burleson about dialysis. 1336 We discussed patient care with Dr Burleson and he states they cannot do dialysis because he does not have nurse. [address] Gorman that there is no nurse on to perform dialysis and he stated that the pt needs to be transferred then. 1351 I discussed the patients case with the transfer center at [facility] and the outreach consultant there recommended an US or kidneys and liver. The have accepted the patient to the ICU by Dr Johnson.
[2018-05-28 13:00] LABS: ABS Basophils 0.1 10^3/ul (0-0.2); ABS Eosinophils 0.1 10^3/ul (0-0.6); ABS Lymphocytes 0.9 10^3/ul (1.0-4.8); ABS Monocytes 0.6 10^3/ul (0-0.8); ABS Neutrophils 15.6 10^3/ul (1.5-7.7); ABS Nucleated RBC 0 10^3/ul; Eosinophil % 0.4 % (0-6); Hematocrit 36 % (35-47); Hemoglobin 10.1 g/dl (12.0-16.0); Lymphocyte % 4.9 % (25-47); Mean Corpuscular HGB Conc 28 g/dl (31-36); Mean Corpuscular Hemoglobin 19 pg (27-31); Mean Corpuscular Volume 66 fL (80-97); Mean Platelet Volume 8.6 um3 (7.4-10.4); Nucleated Red Blood Cells % 0.2; Platelet Count 322 10^3/ul (150-450); Red Blood Count 5.43 10^6/ul (4.00-5.40); Red Cell Distribution Width 27 % (10.5-15); White Blood Count 17.2 10^3/ul (3.5-10.8)
[2018-05-28 13:19] LABS: EGFR Non-African American 8.4 (>60)
--- NOTE | 2018-05-28 13:38 | RAD ---
HISTORY: ett placement COMPARISONS: None relevant VIEWS: 1: frontal portable view of the chest at 1:13 PM FINDINGS: LINES AND TUBES: An endotracheal tube is noted with the tip overlying the trachea between the clavicles and the skylar. A gastric tube is noted, with the tip in the left upper quadrant in a prepyloric position.. CARDIOMEDIASTINAL SILHOUETTE: The cardiomediastinal silhouette is normal for portable technique. PLEURA: The costophrenic angles are sharp. No pleural abnormalities are noted. LUNG PARENCHYMA: The lungs are clear. ABDOMEN: The upper abdomen is clear. There is no subphrenic gas. BONES AND SOFT TISSUES: No bone or soft tissue abnormalities are noted. IMPRESSION: LINES AND TUBES ABOVE. NO ACTIVE CARDIOPULMONARY DISEASE.
--- NOTE | 2018-05-28 13:50 | RAD ---
HISTORY: abrupt altered mental status COMPARISONS: None TECHNIQUE: Multiple contiguous axial CT scans were obtained of the head without intravenous contrast. FINDINGS: The study is limited by patient motion artifact. HEMORRHAGE/INFARCT: There is no hemorrhage or acute infarct. MASSES/SHIFT: There is no mass or shift. EXTRA-AXIAL SPACES: There are no extra-axial fluid collections. SULCI AND VENTRICLES: The sulci and ventricles are normal in size and position for the patient's stated age. CEREBRUM: There are no focal parenchymal abnormalities. BRAINSTEM: There are no focal parenchymal abnormalities. CEREBELLUM: There are no focal parenchymal abnormalities. VESSELS: The vessels are grossly normal. PARANASAL SINUSES: The paranasal sinuses are clear. ORBITS: The orbits are unremarkable. BONES AND SOFT TISSUE: No bone or soft tissue abnormalities are noted. OTHER: None IMPRESSION: LIMITED STUDY. WITHIN THE LIMITATIONS OF THE STUDY, THERE IS NO ACUTE INTRACRANIAL PATHOLOGY.
[2018-05-28 14:24] LABS: Urine Appearance Cloudy; Urine Blood 1+ (Negative); Urine Color Amber; Urine Ketones Trace (Negative); Urine Protein 1+(30 mg/dL) (Negative); Urine Red Blood Cell 2+(6-10/hpf) (Absent); Urine Specific Gravity 1.021 (1.010-1.030); Urine Urobilinogen Positive (Negative); Urine White Blood Cell 2+(11-20/hpf) (Absent)
--- NOTE | 2018-05-28 14:48 | RAD ---
HISTORY: r/o obstructed kidney,liver abnormality COMPARISONS: February 03, 2017 TECHNIQUE: Multiple transverse and longitudinal ultrasound images were obtained of the abdomen using grayscale, color Doppler, and spectral Doppler imaging. FINDINGS: LIVER: The liver is normal in shape, size, contour, and echogenicity. There are no focal parenchymal masses. There is normal hepatopedal flow of the portal vein on Doppler imaging. BILIARY TREE: There is no intrahepatic or extrahepatic biliary dilatation. The common duct measures 0.7 cm. GALLBLADDER: There is a 1 cm x 2.4 cm endophytic polypoid lesion of the gallbladder that is not clearly seen on the previous examination. PANCREAS: The head of the pancreas is unremarkable. The tail of the pancreas is not well visualized secondary to overlying bowel gas. SPLEEN: The spleen is normal in shape, size, contour, and echotexture. The spleen measures 8.6 x 4.5 x 3.2 cm. RIGHT KIDNEY: The right kidney is normal in shape, size, contour, and echogenicity. There is no hydronephrosis or nephrolithiasis. The right kidney measures 11 x 5.5 x 4.6 cm. LEFT KIDNEY: The left kidney is normal in shape, size, contour, and echogenicity. There is no hydronephrosis or nephrolithiasis. The left kidney measures 11.2 x 5.9 x 5.3 cm. AORTA AND IVC: The aorta and IVC are unremarkable. FLUID: There are no pleural effusions. There is no free fluid within the hepatorenal recess. OTHER FINDINGS: None. IMPRESSION: THERE IS AN ENDOPHYTIC POLYPOID MASS OF THE GALLBLADDER MEASURING UP TO 2.4 CM IN SIZE. RECOMMEND CONSIDERATION OF FURTHER EVALUATION WITH CONTRAST-ENHANCED MRI OF THE ABDOMEN AND/OR SURGICAL CONSULTATION.
--- NOTE | 2018-05-28 14:57 | CONSULT ---
Consult Consult: PCCM Consult CC: AMS HPI: 48F with h/o polysubstance abuse presents with ams. The patient had not been seen by family members for the past month. They came to her apt today and she was found unresponsive. She was given narcan in the field with no response. The patient was intubated for airway protection. In the ER she was found to be hypotensive and started on iv fluids. Labwork returned showing severe metabolic acidosis with lactate of 21. She was in shock liver and renal failure as well. Tylenol level was mildly elevated. The patient was started on empiric abx. Bicarb gtt, and NAC. There was no acute dialysis available so transfer is being arranged to another facility. ROS - unable 2/2 ams and intubation PMHx - polysubstance abuse PSHx - gastric bypass All - amoxicillin FamHx - unable SocHx - polysubstance abuse PE Vital Signs: Temp Pulse Resp BP Pulse Ox 98.8 F 130 36 119/72 99 05/28/18 12:47 05/28/18 14:30 05/28/18 12:47 05/28/18 14:30 05/28/18 14:30 Gen - critically ill HEENT - ncat, eomi, +ett Neck - no jvd CV - s1/s2, tachy Pulm - cta, no wheeze abd - soft, nt Ext - no cce. cold extremities Neuro - unresponsive Labs Laboratory Results - last 24 hr 05/28/18 05/28/18 05/28/18 12:45 12:45 12:45 WBC 17.2 H RBC 5.43 H Hgb 10.1 L Hct 36 MCV 66 L MCH 19 L MCHC 28 L RDW 27 H Plt Count 322 MPV 8.6 Neut % (Auto) 90.5 H Lymph % (Auto) 4.9 L [place] % (Auto) 3.4 Eos % (Auto) 0.4 Baso % (Auto) 0.8 Absolute Neuts (auto) 15.6 H Absolute Lymphs (auto) 0.9 L Absolute Monos (auto) 0.6 Absolute Eos (auto) 0.1 Absolute Basos (auto) 0.1 Absolute Nucleated RBC 0 Nucleated RBC % 0.2 Hypochromasia 3+ Anisocytosis 2+ Microcytosis 3+ ABG pH ABG pCO2 ABG pO2 ABG HCO3 ABG O2 Saturation ABG Base Excess Sodium 148 H Potassium 5.8 H Chloride 109 Carbon Dioxide < 7 L* Anion Gap Not Reportable BUN 51 H Creatinine 5.46 H Est GFR ( Amer) 10.2 Est GFR (Non-Af Amer) 8.4 BUN/Creatinine Ratio 9.3 Glucose 62 L Lactic Acid 21.9 H* Calcium 8.3 L Total Bilirubin 6.90 H AST 1715 H ALT 4736 H Alkaline Phosphatase 139 H Total Creatine Kinase 169 Troponin I 0.31 H* Total Protein 5.1 L Albumin 3.0 L Globulin 2.1 Albumin/Globulin Ratio 1.4 Urine Color Urine Appearance Urine pH Ur Specific [place] Urine Protein Urine Ketones Urine Blood Urine Nitrate Urine Bilirubin Urine Urobilinogen Ur Leukocyte Esterase Urine WBC (Auto) Urine RBC (Auto) Ur Squamous Epith Cells Ur Renal Epithelial Cell Urine Bacteria Hyaline Casts Urine Yeast Urine Glucose Salicylates < 2.50 Urine Opiates Screen Acetaminophen 26 Ur Barbiturates Screen Ur Phencyclidine Scrn Ur Amphetamines Screen U Benzodiazepines Scrn Urine Cocaine Screen U Cannabinoids Screen Serum Alcohol < 10 05/28/18 05/28/18 05/28/18 13:06 14:02 14:02 WBC RBC Hgb Hct MCV MCH MCHC RDW Plt Count MPV Neut % (Auto) Lymph % (Auto) [place] % (Auto) Eos % (Auto) Baso % (Auto) Absolute Neuts (auto) Absolute Lymphs (auto) Absolute Monos (auto) Absolute Eos (auto) Absolute Basos (auto) Absolute Nucleated RBC Nucleated RBC % Hypochromasia Anisocytosis Microcytosis ABG pH 7.12 L* ABG pCO2 < 20 L ABG pO2 453 H ABG HCO3 7.3 L* ABG O2 Saturation 98.2 H ABG Base Excess -22.7 L Sodium Potassium Chloride Carbon Dioxide Anion Gap BUN Creatinine Est GFR ( Amer) Est GFR (Non-Af Amer) BUN/Creatinine Ratio Glucose Lactic Acid Calcium Total Bilirubin AST ALT Alkaline Phosphatase Total Creatine Kinase Troponin I Total Protein Albumin Globulin Albumin/Globulin Ratio Urine Color [place] Urine Appearance Cloudy Urine pH 5.0 Ur Specific [place] 1.021 Urine Protein 1+(30 mg/dl) A Urine Ketones Trace A Urine Blood 1+ A Urine Nitrate Negative Urine Bilirubin Negative Urine Urobilinogen Positive A Ur Leukocyte Esterase Negative Urine WBC (Auto) 2+(11-20/hpf) A Urine RBC (Auto) 2+(6-10/hpf) A Ur Squamous Epith Cells Present A Ur Renal Epithelial Cell Present A Urine Bacteria Absent Hyaline Casts Present A Urine Yeast Present A Urine Glucose Negative Salicylates Urine Opiates Screen None detected Acetaminophen Ur Barbiturates Screen None detected Ur Phencyclidine Scrn None detected Ur Amphetamines Screen None detected U Benzodiazepines Scrn None detected Urine Cocaine Screen None detected U Cannabinoids Screen Presumptive positive A Serum Alcohol Imaging CT Head 05/28 IMPRESSION: LIMITED STUDY. WITHIN THE LIMITATIONS OF THE STUDY, THERE IS NO ACUTE INTRACRANIAL PATHOLOGY. CXR 05/28 IMPRESSION: LINES AND TUBES ABOVE. NO ACTIVE CARDIOPULMONARY DISEASE Impression 48F with h/o of polysubstance abuse found down and unresponsive with multiorgan system failure Neuro - AMS - 2/2 overdose? - ct head negative CV - hypotension - 2/2 volume depletion/sepsis - aggressive iv hydration - vasopressors if needed Pulm - acute respiratory failure - 2/2 ams - c/w vent and wean as tolerated ID - sepsis - with multiorgan system failure - initial lactate 21 - iv hydation - check blood/urine cultures - empric vanc/zosyn GI - shock liver - 2/2 hypotension vs tylenol overdose - serial tylenol levels - serial lfts - empiric NAC - abd sono pending Renal - acute renal failure, severe metabolic acidosis, hyperkalemia - 2/2 sepsis - cpk 169 - renal sono pending - strict i/o, daily weights - bicarb gtt - renal consult - may need HD for acidosis Heme - anemia - monitor cbc - keep hgb > 7 Endo - check fs, niss Lines - LIJ TLC, Green PPx - gi/dvt Full Code Transfer to facility with Acute HD capability Critical Care Time: 70 mins
--- NOTE | 2018-05-28 15:00 | OP ---
Operative Report - Blank - Operative Report Date of Operation: 05/28/18 Note: Central Venous Catheter (CVC, Central Line) Placement Date: 05/28/18 Time: 3:00 PM Indication: Hemodynamic monitoring/Intravenous access Attending: Vita Live time-out was completed verifying correct patient, procedure, site, positioning , and special equipment if applicable. The patient was placed in a dependent position appropriate for central line placement based on the vein to be cannulated. The patients left neck was prepped and draped in sterile fashion. 1 % Lidocaine was used to anesthetize the surrounding skin area. A triple lumen 7- Micronesian catheter was introduced into the the internal jugular vein using the Seldinger technique and under ultrasound guidance. The catheter was threaded smoothly over the guide wire and appropriate blood return was obtained. Each lumen of the catheter was evacuated of air and flushed with sterile saline. The catheter was then sutured in place to the skin and a sterile dressing applied. Perfusion to the extremity distal to the point of catheter insertion was checked and found to be adequate. Estimated Blood Loss: None The patient tolerated the procedure well and there were no complications.
[2018-05-28 15:03] VITALS: BP 129/69
--- NOTE | 2018-05-28 15:27 | RAD ---
Indication: Central line placement. History of tobacco use. Comparison: May 28, 2018 Technique: Portable supine AP chest 1459 hours Report: Tip of LEFT IJ central venous catheter is at the level of the superior vena cava RIGHT atrial junction. Tip of endotracheal tube is 7.5 cm above the Yara. Tip of nasogastric tube is at the level of the gastric cardia. No focal pulmonary lesion, compelling alveolar consolidation, pleural effusion, or gross evidence for pneumothorax within limits of supine technique. The heart, pulmonary vasculature, and mediastinal contours are unremarkable. IMPRESSION: #. LEFT IJ central venous catheter in place. #. The endotracheal tube and nasogastric tube could be advanced.
== END | disposition short-term general hospital (02) ==
LOC: ED 12:35
DX: N19 Unspecified kidney failure (principal); K72.90 Hepatic failure, unspecified without coma; R41.82 Altered mental status, unspecified; E87.0 Hyperosmolality and hypernatremia; E87.5 Hyperkalemia
CPT/HCPCS: 36415; 70450; 71045; 76700; 80053; 80307; 80320; 80329; 81003; 81015; 82550; 82803; 83605; 84484; 85025; 85060; 87040; 87086; 87150; 93005; 99285; G0480; J0132; J2543; J3370; J7060